=== PATIENT | female | born 1995 | race Caucasian/White ===

== ENCOUNTER → 2017-12-23 11:54 | Outpatient (CLI) | payer BC, SELFPAY ==
[2017-12-23 12:25] LABS: Absolute Lymphocyte Count 7.34 X10^3/ul (0.83-4.51); Absolute Neutrophil Count 2.6 X10^3/uL (2.0-7.7); Basophil# 0.24 X10^3/uL; Basophil% 2.1 % (0-1); Eosinophil# 0.26 X10^3/uL; Eosinophils% 2.3 % (0-5); Hematocrit 37.9 % (37-47); Hemoglobin 12.1 g/dl (12.0-15.0); Lymphocyte # 7.34 X10^3/ul (4.0); Lymphocyte % 64.7 % (19-41); Mean Corp Hgb Conc 31.9 g/gl (32-36); Mean Corpuscular Hgb 26.5 pg (27.0-32.0); Mean Corpuscular Volume 83.1 fL (81-99); Mean Platelet Vol. 10.6 fl (6.2-12.0); Monocyte% 7.9 % (0-10); Neutrophil # 2.59 X10^3/uL (2.7-7.7); Neutrophil % 22.8 % (47-70); Platelet Count 220 K/mm3 (150-450); RBC Distribution Width CV 13.2 % (11.6-14.6); RBC Distribution Width SD 40.1 fl (35.1-43.9); Red Blood Count 4.56 M/mm3 (4.2-5.4); White Blood Count 11.4 K/mm3 (4.4-11.0)
[2017-12-23 12:26] LABS: Differential Indicated SCAN CRITERIA MET; POSITIVE COUNT NO; POSITIVE DIFFERENTIAL YES; POSITIVE MORPHOLOGY YES
[2017-12-23 12:27] LABS: ALB/GLOB Ratio 0.7 RATIO (0.9-2.4); AST(SGOT) 37 U/L (15-37); Alanine Aminotransfer ALT/SGPT 70 U/L (13-56); Albumin, Serum 3.3 g/dL (3.2-5.0); Alkaline Phosphatase 101 U/L (45-117); Anion Gap 6 (5-15); BUN 11 mg/dL (7-18); BUN/Creat Ratio 12.6 RATIO (10-20); Calcium,Total 8.9 mg/dL (8.5-10.1); Chloride 107 mmol/L (98-107); Creatinine, Serum 0.87 mg/dL (0.55-1.02); EST Glomerular Filtration Rate 87 mL/min (>60); Est Glom Filt Rate - Afr Amer 105 mL/min (>60); Globulin 4.9 g/dL (2.2-4.2); Glucose 161 mg/dL (74-106); Potassium 3.5 mmol/L (3.5-5.1); Protein, Total 8.2 g/dL (6.4-8.2); Sodium Level 140 mmol/L (136-145)
[2017-12-23 13:25] LABS: Atypical Lymphocyte 1+ %
[2017-12-25 08:02] LABS: Pathologist Review Reviewed
== END ==
DX: K51.919 Ulcerative colitis, unspecified with unspecified complications (principal); K92.1 Melena
CPT/HCPCS: 80053; 85025

== ENCOUNTER → 2018-01-04 16:00 | Outpatient (CLI) | payer BC, SELFPAY ==
--- NOTE | 2018-01-04 | COLBX_PTH ---
PATIENT: AARON HYDE LOC: [facility] U#:[id number] AGE/SX: 30/F ROOM: RE01/04/[address]: Dr. Eric Thayer MD : 1995 BED: DIS: SPEC #: [id number] RECD: 01/04/18 15:25 STATUS: VILMA RAFAEL #: [id number] ABENA: 01/04/18 00:[address]: Eric Thayer DEPT: SURGICAL PATHOLOGY RECD BY: Marcel Posada ENTERED: 01/05/18 08:20 SP TYPE: COLON BX OT DR: No Primary Care [facility] Tissues: A - Right colon B - Transverse colon C - Rectum, NOS Procedures: Surgery Specimen Level IV HEADER OPERATION: Colonoscopy with biopsy PRE-OP DIAGNOSIS: History of ulcerative colitis / bleeding / abdominal pain TISSUE SUBMITTED: A. Right colon biopsy, rule out ulcerative colitis, B. Transverse left colon, rule out ulcerative colitis, C. Rectum biopsy, rule out ulcerative colitis MICROSCOPIC DIAGNOSIS A. Right colon, biopsy: Focal chronic active colitis. See microscopic description and comment. B. Transverse/left colon, biopsy: Chronic active colitis. See microscopic description and comment. C. Rectum, biopsy: Chronic active colitis. See microscopic description and comment. SJ:rg 01/06/18 COMMENT The findings are consistent with active inflammatory bowel disease (ulcerative colitis). Correlation with clinical, endoscopic findings and appropriate follow up are necessary. MICROSCOPIC DESCRIPTION Slides are reviewed. A. The specimen shows fragments of colonic mucosa with acute and chronic inflammatory cell infiltrate in the lamina propria, minimal cryptitis, crypt abscesses and glandular distortion. Granulomas are not seen. There is no evidence of dysplasia. B. The specimen shows fragments of colonic mucosa with acute and chronic inflammatory cell infiltrate in the lamina propria, cryptitis, crypt abscesses and minimal glandular distortion. Granulomas are not seen. There is no evidence of dysplasia. C. The specimen shows fragments of colonic mucosa and superficial submucosa with moderate chronic inflammation, glandular distortion and mild acute inflammation. Cryptitis, crypt abscesses and granulomas are not seen. There is no evidence of dysplasia. GROSS DESCRIPTION A - Received in fixative is one container labeled with the patient's name and designated right colon. The specimen consists of multiple irregular fragments of light bowles soft tissue that in aggregate measure 1.5 x 0.3 x 0.1 cm. The specimen is totally submitted in one cassette. B - Received in fixative is one container labeled with the patient's name and designated transverse/left colon. The specimen consists of multiple irregular fragments of light bowles soft tissue that in aggregate measure 1 x 0.6 x 0.1 cm. The specimen is totally submitted in one cassette. C - Received in fixative is one container labeled with the patient's name and designated rectum. The specimen consists of multiple irregular fragments of light bowles soft tissue that in aggregate measure 0.5 x 0.5 x 0.1 cm. The specimen is totally submitted in one cassette. / SJ:rg 01/05/18 TC:2 CPT: 81405 x3
== END ==
LOC: LABSPEC 16:01
PROVIDERS: Visit Provider Internal Medicine Gastroenterology
DX: R10.9 Unspecified abdominal pain (principal); R58 Hemorrhage, not elsewhere classified; Z87.19 Personal history of other diseases of the digestive system
CPT/HCPCS: 88305

== ENCOUNTER 2018-01-20 03:59 | Inpatient (IN) | payer BC, SELFPAY ==
[2018-01-20] VITALS (12 sets, daily range): BP systolic 137–159; BP diastolic 66–100; PULSE 76–129; RESP 14–26; TEMP 36.5–37.2; O2SAT 95–100; BMI 38.9; BMI 40.0
--- NOTE | 2018-01-20 04:07 | ED.DCSUM_ITS ---
- ER Visit Summary Date of Service: 01/20/18 Chief Complaint: Elevated blood sugar, vomiting History of Present Illness: The patient is a 22 F presents to the emergency department with elevated blood sugar. Patient has a history of ulcerative colitis. She has been on 30 mg of prednisone for the past 3 weeks. She had outpatient lab work done and had a blood sugar of around 400. This was done about 2 days ago. The patient was started on metformin. She states she does not feel any better. She has been nauseated with some vomiting. She has been lightheaded and has had increased urination. She denies any bloody diarrhea. She denies any fevers or chills. She does admit to increased urination, but has had no pain with urination. She does states I do not feel well. Physical Examination: Vital signs reviewed General: Well-nourished, well-developed Head: Normocephalic, atraumatic Eyes: Pupils equal and reactive, extraocular muscles intact Neck, supple, no lymphadenopathy Heart: Regular rate and rhythm Respiratory: No distress, clear bilaterally Abdomen: Soft, nontender, nondistended, no peritoneal signs Back: Nontender Extremities: Nontender, no edema, no cords Skin: Normal color no rash Neuro: Alert and oriented, no focal or lateralizing deficits Test Results: [] Emergency Department Course and Treatment: The patient presents with elevated blood sugar and nausea. She really has no reproducible abdominal pain. She was tachycardic however on arrival, but had no tachypnea. IV was established. Patient was given Zofran and a GI cocktail. She had marked improvement of her nausea. She was given IV fluids. Screening labs demonstrate hyperglycemia in the patient has an elevated anion gap and a bicarb of 8. She only has a small amount of ketones in the serum. I really do not suspect this to be diabetic ketoacidosis, the patient really has no documented history of diabetes, and is only had elevated blood sugar because of her prednisone use. I did discuss the patient with Dr. Bryson. He did clear agree with plan for subcutaneous insulin therapy and aggressive hydration. I do not feel this patient requires the ICU at this time. Her lactate is normal. Again, she is not tachypneic. She has had improvement with fluids. I do feel that she can require continued hydration , repeat metabolic panel, and determining of insulin needs while on her present therapy. Patient was discussed with the hospitalist will be admitted. Treatment Plan: [] Disposition: Admission Impression: 1. Dehydration 2. Hyperglycemia This note was generated with [employer] dictation software. It may contain incorrect words, spelling, and punctuation that were not noted in review of the chart prior to signing ED Disposition - Plan for ED Patient: Chief Complaint: Hyperglycemia Referrals: Noah Purcell MD [Primary Care Provider] -
[2018-01-20 04:11] LABS: Bedside Glucose 362 mg/dL (70-110)
[2018-01-20] MEDS: 0.9% Normal Saline 1,000 ML 1000 ML IV ×2 (04:20→04:21)
[2018-01-20] MEDS: Ondansetron 4 MG/2 ML Vial IV (04:21)
[2018-01-20 04:33] LABS: Basophil# 0.06 X10^3/uL; Basophil% 0.5 % (0-1); Eosinophil# 0.08 X10^3/uL; Eosinophils% 0.6 % (0-5); Hematocrit 44.9 % (37-47); Hemoglobin 15.1 g/dl (12.0-15.0); Lymphocyte % 33.9 % (19-41); Mean Corp Hgb Conc 33.6 g/gl (32-36); Mean Corpuscular Hgb 27.3 pg (27.0-32.0); Mean Platelet Vol. 11.3 fl (6.2-12.0); Monocyte# 1.14 X10^3/uL; Neutrophil % 55.1 % (47-70); Platelet Count 362 K/mm3 (150-450); RBC Distribution Width CV 13.8 % (11.6-14.6); RBC Distribution Width SD 39.9 fl (35.1-43.9); Red Blood Count 5.54 M/mm3 (4.2-5.4); White Blood Count 12.7 K/mm3 (4.4-11.0)
[2018-01-20 04:40] LABS: POSITIVE COUNT NO; POSITIVE DIFFERENTIAL NO; POSITIVE MORPHOLOGY NO
[2018-01-20 04:51] LABS: ALB/GLOB Ratio 0.8 RATIO (0.9-2.4); AST(SGOT) 11 U/L (15-37); Alanine Aminotransfer ALT/SGPT 52 U/L (13-56); Albumin, Serum 4.2 g/dL (3.2-5.0); Alkaline Phosphatase 80 U/L (45-117); Anion Gap 24 (5-15); BUN 18 mg/dL (7-18); Calcium,Total 8.9 mg/dL (8.5-10.1); Chloride 101 mmol/L (98-107); EST Glomerular Filtration Rate 60 mL/min (>60); Est Glom Filt Rate - Afr Amer 72 mL/min (>60); Estimated Creatinine Clearance 74.81 ml/min; Globulin 5.4 g/dL (2.2-4.2); Glucose 373 mg/dL (74-106); Protein, Total 9.6 g/dL (6.4-8.2); Sodium Level 133 mmol/L (136-145)
[2018-01-20] MEDS: Insulin Lispro 100 UNIT/ML INSULN.PEN 14 UNIT SC (05:29)
[2018-01-20] MEDS: Lactated Ringers 1,000 ML 999 ML IV ×2 (05:33→07:24)
[2018-01-20 05:46] LABS: Lactic Acid 1.2 mmol/L (0.4-2.0)
[2018-01-20 06:15] LABS: White Blood Cells 0 SEEN /hpf (0-5)
[2018-01-20 06:17] LABS: Color, Urine Yellow (Yellow); Glucose, Dipstick 1000 mg/dl (Normal); Leukocyte Esterase-Dipstick Negative /ul (Negative); Nitrite-Dipstick Negative (Negative); Occult Blood-Urine 150 /ul (Negative); Protein-Dipstick 100 mg/dl (Negative); Specific Gravity, Urine 1.025 (1.002-1.030); Urine Bilirubin Dipstick Negative (Negative); Urine Clarity Sl. Cloudy (Clear); Urine Urobilinogen Normal (Normal)
[2018-01-20 06:19] LABS: Internal QC Validated? YES +Cl - CLEAR BKGD; Pregnancy, Urine Negative Negative
[2018-01-20 06:35] LABS: Ketone-Dipstick 150 mg/dl (Negative)
[2018-01-20 06:36] LABS: Bacteria RARE /hpf (None Seen); Squamous Epithelial Cells - UA 0-5 SEEN /hpf (5-10)
[2018-01-20 06:37] LABS: Mucous, Urine 1+ /hpf (<or=2+); Red Blood Cells-Urine 0-5 SEEN /hpf (0-5)
[2018-01-20 07:06] LABS: Bedside Glucose 272 mg/dL (70-110)
--- NOTE | 2018-01-20 07:37 | HP.PCM_ITS ---
Problem List (1) DKA (diabetic ketoacidoses) Status: Acute (2) Ulcerative colitis Status: Acute History of Present Illness Date of Admission: 01/20/18 Chief Complaint: Nausea, abdominal pain and vomiting The patient is a 22 year old F with a significant history of ulcerative colitis who presents with abdominal pain, nausea and vomiting. This month (December 2017)patient was started on prednisone because of her ulcerative colitis. Patient reported that in the last 3 days her blood glucose has been extremely elevated in the upper 300s. Associated of his symptoms is increased urinary frequency to an extent that she even becomes incontinent of urine. Further, she reports polydipsia, anorexia; and a feeling of dry tongue. About 3 days ago she was diagnosed with diabetes by her PCP and was started on Glucophage. Past Medical History Medical History: Medical History (Last Updated 01/20/18 @ 07:40 by Wally Kwon MD) Ulcerative colitis K51.90 Allergies amoxicillin Allergy (Verified 01/20/18 04:00) Rash Sulfa (Sulfonamide Antibiotics) Allergy (Verified 01/20/18 04:00) Nausea/Vom/Diarrhea Home Medications: Ambulatory Orders Medication Instructions Recorded Ferrous Sulfate [Iron] 325 mg PO DAILY 01/20/18 Mesalamine [Lialda] 1.2 gm PO DAILY 01/20/18 Metformin HCl [Glucophage] 500 mg PO BIDCM 01/20/18 Prednisone 20 mg PO DAILY 01/20/18 Lives: With Family Smoking Status: Former smoker Tobacco Use: Non-smoker Alcohol: None Drugs: None - *Family History Maternal History Items: - - Liver disease Review of Systems Constitutional: Reports: Malaise Eyes: Reports: Blurred vision HEENT: Denies: Head Aches, Sinus Congestion, Sinus Drainage Cardiovascular: Denies: Chest Pain, Palpitations Respiratory: Denies: Cough, Shortness of breath at rest, Sputum production Gastrointestinal: Reports: Abdominal Pain, Nausea, Vomiting Genitourinary: Reports: Frequency, Incontinence, Urgency Musculoskeletal: Denies: Joint Pain, Joint Tenderness Skin: Reports: Dryness Neurological: Denies: Numbness, Tingling, Focal weakness Psychiatric: Denies: Anxiety, Depression, Homicidal Ideations, Suicidal Ideations Hematologic/ Lymphatic: Denies: Easy Bruising, Easy Bleeding VTE Information - Inpt Only VTE Present on Admission: No VTE Mechan Device Prophylaxis: None VTE Pharm Prophylaxis ordered?: No Reason prophylaxis not ordered:: Medical Contraindication Patient Problems: Active and Suspected Problems (Last Updated 01/20/18 @ 07:40 by Wally Kwon MD) DKA (diabetic ketoacidoses) (Acute) Ulcerative colitis (Acute) - Physical Exam General: Alert, Oriented x3, Cooperative HEENT: Atraumatic, PERRLA, EOMI, Normocephalic Neck: Supple, No JVD, Negative Carotid Bruits Lungs: Clear to auscultation, Normal air movement Cardiovascular: Tachycardic Abdomen: Bowel Sounds Present, Soft, Tender Extremities: No edema, Capillary Refill Less than 3 Seconds Skin: No rashes, No breakdown Musculoskeletal: No Tenderness to Palpation of Joints or Extremities Lymphatic: No Cervical, Supraclavicular, or Inguinal Adenopathy Neurological: Cranial nerves II-XII grossly intact Psych/Mental Status: Normal Affect Vital Signs Temp Pulse Resp BP Pulse Ox 98.3 F 100 26 H 137/85 H 97 01/20/18 07:23 01/20/18 07:23 01/20/18 07:23 01/20/18 07:23 01/20/18 07:23 Oxygen Delivery Method Room Air Weight: 116 kg Body Mass Index (BMI) 38.9 Finger Stick Blood Glucose 272 Laboratory Tests Past 24 Hrs 01/20/18 01/20/18 01/20/18 04:25 04:25 04:25 WBC 12.7 H RBC 5.54 H Hgb 15.1 H Hct 44.9 MCV 81.0 MCH 27.3 MCHC 33.6 RDW 13.8 RDW Differential 39.9 Plt Count 362 MPV 11.3 Immature Gran % (Auto) 0.900 Neut % (Auto) 55.1 Lymph % (Auto) 33.9 [place] % (Auto) 9.0 Eos % (Auto) 0.6 Baso % (Auto) 0.5 Absolute Neuts (auto) 7.0 Absolute Lymphs (auto) 4.30 Total Counted Not Reportable Sodium 133 L Potassium 4.0 Chloride 101 Carbon Dioxide 8.0 L* Anion Gap 24 H BUN 18 Creatinine 1.20 H Estim Creat Clear Calc 74.81 Est GFR (MDRD) Af Amer 72 Est GFR (MDRD) Non-Af 60 BUN/Creatinine Ratio 15.0 Glucose 373 H Lactic Acid Calcium 8.9 Total Bilirubin 0.60 AST 11 L ALT 52 Alkaline Phosphatase 80 Total Protein 9.6 H Albumin 4.2 Globulin 5.4 H Albumin/Globulin Ratio 0.8 L Urine Color Urine Clarity Urine pH Ur Specific [place] Urine Protein Urine Glucose (UA) Urine Ketones Urine Occult Blood Urine Nitrite Urine Bilirubin Urine Urobilinogen Ur Leukocyte Esterase Urine RBC Urine WBC Ur Squamous Epith Cells Urine Bacteria Urine Mucus Urine Test Acetone Level SMALL H 01/20/18 01/20/18 01/20/18 05:05 06:05 06:05 WBC RBC Hgb Hct MCV MCH MCHC RDW RDW Differential Plt Count MPV Immature Gran % (Auto) Neut % (Auto) Lymph % (Auto) [place] % (Auto) Eos % (Auto) Baso % (Auto) Absolute Neuts (auto) Absolute Lymphs (auto) Total Counted Sodium Potassium Chloride Carbon Dioxide Anion Gap BUN Creatinine Estim Creat Clear Calc Est GFR (MDRD) Af Amer Est GFR (MDRD) Non-Af BUN/Creatinine Ratio Glucose Lactic Acid 1.2 Calcium Total Bilirubin AST ALT Alkaline Phosphatase Total Protein Albumin Globulin Albumin/Globulin Ratio Urine Color Yellow Urine Clarity Sl. Cloudy Urine pH 5.0 Ur Specific [place] 1.025 Urine Protein 100 H Urine Glucose (UA) 1000 H Urine Ketones 150 H Urine Occult Blood 150 H Urine Nitrite Negative Urine Bilirubin Negative Urine Urobilinogen Normal Ur Leukocyte Esterase Negative Urine RBC 0-5 SEEN Urine WBC 0 SEEN Ur Squamous Epith Cells 0-5 SEEN Urine Bacteria RARE Urine Mucus 1+ Urine Test Negative Acetone Level POC Glucose 01/20/18 01/20/18 07:00 04:05 POC Glucose 272 H 362 H Assessment/Plan All Active Problems (Last Updated 01/20/18 @ 07:40 by Wally Kwon MD) DKA (diabetic ketoacidoses) (Acute) Ulcerative colitis (Acute) The patient is a 22 year old F with a significant history of ulcerative colitis who presents with abdominal pain, nausea, vomiting, elevated blood glucose and found to have laboratory evidence of elevated anion gap hyperglycemia and ketosis concerning for diabetes ketoacidosis and dehydration. Diabetes ketoacidosis Patient received lispro 14 units at emergency department. Patient is scheduled to receive 2 L bolus of lactated Ringer's; and 2 L bolus of normal saline at the ED. Patient to be admitted to progressive care unit and continue hydration with half -normal saline with 40 mEq of potassium at 100 mL's per hour BMP stat and every 4 hours. Accu-Cheks every 2 hours and correction scale with lispro. We will keep patient n.p.o. for now. Morphine as needed for pain Zofran as needed for nausea and vomiting. A1c ordered. Dehydration Hydration as above. Ulcerative colitis Continue prednisone Patient to follow up with her GI doctor upon discharged. DVT prophylaxis Ambulation This note was prepared with speech recognition software and may be prone to errors in storage facility housekeeper. Code Visit Inpatient E&M: 63099 Init Hosp L2
[2018-01-20 08:10] LABS: Anion Gap 19 (5-15); BUN 14 mg/dL (7-18); BUN/Creat Ratio 17.1 RATIO (10-20); Calcium,Total 8.2 mg/dL (8.5-10.1); Chloride 107 mmol/L (98-107); Creatinine, Serum 0.82 mg/dL (0.55-1.02); EST Glomerular Filtration Rate 93 mL/min (>60); Est Glom Filt Rate - Afr Amer 113 mL/min (>60); Estimated Creatinine Clearance 109.48 ml/min; Glucose 238 mg/dL (74-106); Potassium 3.7 mmol/L (3.5-5.1); Sodium Level 139 mmol/L (136-145)
[2018-01-20 08:30] LABS: Allen Test POS; Base Excess -19 mmol/L (-2 to +2); Bicarbonate 7.5 mmol/L (22-26); Blood Gas Specimen Type ART; O2 Delivery Device Room Air; PO2 169 mmHG (75-100); SITE R Radial; SO2 99 % (95-99); Time Given 819; Total Carbon Dioxide 8 mmol/L; pCO2 15.3 mmHg (35-45)
[2018-01-20 09:01] LABS: Bedside Glucose 206 mg/dL (70-110)
[2018-01-20] MEDS: Potassium Chloride 40 MEQ in 0.45% Normal Saline 1,000 ML 100 MEQ IV (09:17)
[2018-01-20] MEDS: predniSONE 20 MG Tablet PO (09:18)
[2018-01-20] MEDS: Ferrous Sulfate 325 MG Tablet PO (09:18)
[2018-01-20] MEDS: Mesalamine 1.2 GM Tablet PO (09:18)
[2018-01-20] MEDS: Insulin Lispro 100 UNIT/ML INSULN.PEN SQ ×7 (10:03→22:08)
[2018-01-20 10:06] LABS: Bedside Glucose 225 mg/dL (70-110)
[2018-01-20 10:39] LABS: Anion Gap 16 (5-15); BUN 13 mg/dL (7-18); BUN/Creat Ratio 15.1 RATIO (10-20); Calcium,Total 8.3 mg/dL (8.5-10.1); Chloride 109 mmol/L (98-107); Creatinine, Serum 0.86 mg/dL (0.55-1.02); EST Glomerular Filtration Rate 87 mL/min (>60); Est Glom Filt Rate - Afr Amer 106 mL/min (>60); Estimated Creatinine Clearance 104.38 ml/min; Glucose 208 mg/dL (74-106); Sodium Level 139 mmol/L (136-145)
--- NOTE | 2018-01-20 10:56 | CASEMGMT ---
Face to Face with patient for initial transition planning/care coordination assessment. MORENA PATRICIA introduced self and role at [facility], pt voices understanding and consents to assessment at this time. Pt is lying in bed in no distress at this time. Pt is A/Ox4 at this time and answers all questions appropriately at this time. Care providers, pharmacy, and demographics verified. See attached link. Pt voices no further concerns/needs at this time. Advised pt to ask for CM if any further questions/concerns/needs arise, voices understanding. PLAN: [place] MORENA PATRICIA
[2018-01-20 12:20] LABS: Bedside Glucose 195 mg/dL (70-110)
[2018-01-20 14:06] LABS: Bedside Glucose 205 mg/dL (70-110)
[2018-01-20 14:27] LABS: Anion Gap 16 (5-15); BUN 11 mg/dL (7-18); BUN/Creat Ratio 13.5 RATIO (10-20); Calcium,Total 8.3 mg/dL (8.5-10.1); Chloride 109 mmol/L (98-107); Creatinine, Serum 0.82 mg/dL (0.55-1.02); EST Glomerular Filtration Rate 93 mL/min (>60); Est Glom Filt Rate - Afr Amer 113 mL/min (>60); Estimated Creatinine Clearance 109.48 ml/min; Glucose 200 mg/dL (74-106); Potassium 3.7 mmol/L (3.5-5.1); Sodium Level 137 mmol/L (136-145)
--- NOTE | 2018-01-20 15:35 | PCM.PN.BLA ---
Progress Note 22 y/o female, obese, recently on steroids for ulcerative colitis, comes in with complaints of hyperglycemia and dehydration. Admitted early this morning. She is seen and examined. No new complains. Vitals are stable. Labs shows HCO3 12, Anion gap is 16. Being managed in PCU, found to be in DKA, repeat BMP still shows elevated anion gap, on ISS every 2 hours, will trend BMP. Will follow in am.
[2018-01-20 16:16] LABS: Bedside Glucose 211 mg/dL (70-110)
[2018-01-20 18:10] LABS: Bedside Glucose 212 mg/dL (70-110)
[2018-01-20 19:07] LABS: Anion Gap 18 (5-15); BUN 10 mg/dL (7-18); BUN/Creat Ratio 13.2 RATIO (10-20); Calcium,Total 8.3 mg/dL (8.5-10.1); Chloride 107 mmol/L (98-107); Creatinine, Serum 0.76 mg/dL (0.55-1.02); EST Glomerular Filtration Rate 101 mL/min (>60); Est Glom Filt Rate - Afr Amer 123 mL/min (>60); Estimated Creatinine Clearance 118.12 ml/min; Glucose 240 mg/dL (74-106); Potassium 3.5 mmol/L (3.5-5.1); Sodium Level 135 mmol/L (136-145)
[2018-01-20 19:23] LABS: Anion Gap 16 (5-15); BUN 9 mg/dL (7-18); BUN/Creat Ratio 11.7 RATIO (10-20); Calcium,Total 8.4 mg/dL (8.5-10.1); Chloride 109 mmol/L (98-107); Creatinine, Serum 0.77 mg/dL (0.55-1.02); EST Glomerular Filtration Rate 100 mL/min (>60); Est Glom Filt Rate - Afr Amer 121 mL/min (>60); Estimated Creatinine Clearance 116.59 ml/min; Glucose 221 mg/dL (74-106); Potassium 3.5 mmol/L (3.5-5.1); Sodium Level 136 mmol/L (136-145)
[2018-01-20 20:21] LABS: Bedside Glucose 223 mg/dL (70-110)
[2018-01-20 21:21] LABS: Hemoglobin A1c 10.2 % (4.2-6.3)
[2018-01-20 22:19] LABS: Anion Gap 15 (5-15); BUN 7 mg/dL (7-18); BUN/Creat Ratio 9.7 RATIO (10-20); Calcium,Total 8.4 mg/dL (8.5-10.1); Chloride 109 mmol/L (98-107); Creatinine, Serum 0.72 mg/dL (0.55-1.02); EST Glomerular Filtration Rate 108 mL/min (>60); Est Glom Filt Rate - Afr Amer 131 mL/min (>60); Estimated Creatinine Clearance 124.68 ml/min; Glucose 207 mg/dL (74-106); Potassium 3.3 mmol/L (3.5-5.1); Sodium Level 137 mmol/L (136-145)
[2018-01-20 22:20] LABS: Bedside Glucose 194 mg/dL (70-110)
[2018-01-21] MEDS: Insulin Lispro 100 UNIT/ML INSULN.PEN SQ ×3 (00:06→04:01)
[2018-01-21 00:15] LABS: Bedside Glucose 213 mg/dL (70-110)
[2018-01-21 02:06] LABS: Bedside Glucose 212 mg/dL (70-110)
[2018-01-21 02:34] VITALS: PULSE 140
[2018-01-21 03:03] VITALS: PULSE 86
[2018-01-21 03:45] LABS: Anion Gap 14 (5-15); BUN 6 mg/dL (7-18); BUN/Creat Ratio 9.6 RATIO (10-20); Calcium,Total 8.1 mg/dL (8.5-10.1); Chloride 111 mmol/L (98-107); Creatinine, Serum 0.63 mg/dL (0.55-1.02); EST Glomerular Filtration Rate 127 mL/min (>60); Est Glom Filt Rate - Afr Amer 153 mL/min (>60); Estimated Creatinine Clearance 142.49 ml/min; Glucose 199 mg/dL (74-106); Potassium 3.4 mmol/L (3.5-5.1); Sodium Level 138 mmol/L (136-145)
[2018-01-21 04:00] VITALS: BP 136/70; PULSE 88; RESP 16; TEMP 36.8; O2SAT 98
[2018-01-21 04:15] LABS: Bedside Glucose 190 mg/dL (70-110)
[2018-01-21 06:56] LABS: Bedside Glucose 188 mg/dL (70-110)
[2018-01-21 07:13] VITALS: PULSE 97
[2018-01-21] MEDS: Ferrous Sulfate 325 MG Tablet PO (08:13)
[2018-01-21] MEDS: Insulin Lispro 100 UNIT/ML INSULN.PEN SC ×2 (08:13→11:50)
[2018-01-21] MEDS: Insulin Lispro 100 UNIT/ML INSULN.PEN 8 UNIT SC ×2 (08:13→11:50)
[2018-01-21] MEDS: predniSONE 20 MG Tablet PO (08:13)
[2018-01-21] MEDS: Mesalamine 1.2 GM Tablet PO (08:13)
[2018-01-21 09:45] VITALS: BP 135/64; PULSE 113; RESP 16; TEMP 36.8; O2SAT 99
--- NOTE | 2018-01-21 10:59 | DCINST_ITS ---
- Discharge Diagnoses Current Active Problems: Current Active and Chronic Problems (Last Updated 01/20/18 @ 07:40 by Wally Kwon MD) DKA (diabetic ketoacidoses) (Acute) Ulcerative colitis (Acute) You will use the following diet at home:: Calorie/Carbohydrate Controlled ( specify 1200, 1400, etc) - 1800 calories per day Your food should be the consistency of: Regular Your liquids should be the consistency of: Regular/Thin Discharge Activity: Return to Normal Activity Allergies/Adverse Reactions: Allergies amoxicillin Allergy (Verified 01/20/18 04:00) Rash Sulfa (Sulfonamide Antibiotics) Allergy (Verified 01/20/18 04:00) Nausea/Vom/Diarrhea Medications to take at Discharge Ferrous Sulfate [Iron] 325 mg PO DAILY 01/20/18 Medroxyprogesterone Acetate [Depo-Subq Provera 104] 1 dis.syr SQ QMONTH Mesalamine [Lialda] 1.2 gm PO DAILY 01/20/18 Metformin HCl [Glucophage] 500 mg PO BIDCM 01/20/18 Prednisone 30 mg PO DAILY 01/20/18 Insulin Glargine [Lantus SoloStar Pen] 20 units SC DAILY #1 pen 01/21/18 Insulin Lispro [Humalog KwikPen] 2 unit SC TIDAC #1 insuln.pen 01/21/18 Insulin Lispro [Humalog KwikPen] See Protocol SC ACHS #1 insuln.pen 01/21/18 The following prescriptions were given: Insulin Glargine [Lantus SoloStar Pen] 20 units SC DAILY #1 pen Insulin Lispro [Humalog KwikPen] See Protocol SC ACHS #1 insuln.pen Insulin Lispro [Humalog KwikPen] 2 unit SC TIDAC #1 insuln.pen Primary Care Physician: Noah Purcell MD [Primary Care Provider] - Please follow up with your Primary Care Physician in: 1-2 weeks Test Results: Test results from this visit will be discussed in further detail at your follow- up appointment, if applicable. Please Follow Up With: Ashlie Borrego DIRECTOR [employer]ENT [employer]ET[employer] When: 1 week Please Follow Up With: Eric Thayer MD When: As directed Proposed Discharge Date: 01/21/18
[2018-01-21 12:00] LABS: Bedside Glucose 344 mg/dL (70-110)
--- NOTE | 2018-01-21 13:41 | PCM.DC.SUM ---
<Allen Roldan - Last Filed: 01/21/18 13:41> Discharge Date and Diagnosis Date of Admission: 01/20/18 Date of Discharge: 01/21/18 - Primary Discharge Diagnosis Active and Suspected Problems (Last Updated 01/20/18 @ 07:40 by Wally Kwon MD) DKA (diabetic ketoacidoses) (Acute) Dehydration 2/2 above Ulcerative colitis Hypokalemia Morbid obesity Hospital Course and Treatment Operations: None Procedures: None Summary of Care Provided: Physical exam on day of discharge: General: Resting comfortably NAD Psych: A/Ox3 normal affect HEENT: PEARRLA AT NC Neck: Supple NT CV: RRR no m/t/r/g/h Resp: CTA Abd: [id number] Soft NT no guarding or rigidity, morbid obesity. Ext: DP2+= no edema Skin: W/D normal turgor Lymph/Heme: No active bleeding or adenopathy Neuro: CN2-12 intact Hospital course: The patient is a 22 year old F with a hx of recent dx of DMt2, ulcerative colitis currently on a long prednisone taper, morbid obesity, who presents to the ER with nausea, vomiting, and abdominal pain. She was recently started on metformin for DMt2 by her PCP, and is currently on a long prednisone taper for ulcerative colitis per Dr. Thayer (GI). She had increased urinary frequency, thirst, and urinary incontinence. She was found to have elevated glucose, increased acetone level, elevated white count. Urinalysis was neg for infection. Glucose and ketone levels were elevated. She was started on long and short acting insulin, IV fluids, and admitted to the PCU for DKA. She was kept overnight and was able to achieve better glucose control. Potassium was low and was repleted. A1C was 10.2. She had no further symptoms the following morning. She was prescribed 20 units lantus daily, 2 units humalog tid with meals, and a sliding scale. She was writted for a glucometer, lancets, test strips, and insulin syringes. She was advised to see WILLI Borrego in endocrinology within a week. She will need to continue the prednisone taper as prescribed and follow up with Dr. Thayer. She will restart metformin. I also advised her of the risk of worsening diabetes and weight gain with continued Depo control and to seek guidance on alternatives. She was discharged home in stable condition. This patient was seen by Allen Roldan PA-C under the supervision of Doctor Lela. [] Discharge Diet: 1800 Calorie Control Diet Discharge Activity: Return to Normal Activity Home Medications: Medications to take at Discharge Ferrous Sulfate [Iron] 325 mg PO DAILY 01/20/18 Medroxyprogesterone Acetate [Depo-Subq Provera 104] 1 dis.syr SQ QMONTH 01/20/18 Mesalamine [Lialda] 1.2 gm PO DAILY 01/20/18 Metformin HCl [Glucophage] 500 mg PO BIDCM 01/20/18 Prednisone 30 mg PO DAILY 01/20/18 Insulin Glargine [Lantus SoloStar Pen] 20 units SC DAILY #1 pen 01/21/18 Insulin Lispro [Humalog KwikPen] 2 unit SC TIDAC #1 insuln.pen 01/21/18 Insulin Lispro [Humalog KwikPen] See Protocol SC ACHS #1 insuln.pen 01/21/18 Following Prescrptions Were Given to Patient: Insulin Glargine [Lantus SoloStar Pen] 20 units SC DAILY #1 pen Insulin Lispro [Humalog KwikPen] See Protocol SC ACHS #1 insuln.pen Insulin Lispro [Humalog KwikPen] 2 unit SC TIDAC #1 insuln.pen Primary Care Physician: Noah Purcell MD [Primary Care Provider] - Please follow up with your Primary Care Physician in: 1-2 weeks Please Follow Up With: Ashlie Borrego NP-C When: 1 week Please Follow Up With: Eric Thayer MD When: As directed Disposition: Home Minutes spent on discharge:: 40 Patient Condition:: Stable Medical Necessity - Tobacco Use Smoking Status: Former smoker Tobacco Use: Non-smoker Meaningful Use Info Meaningful Use Diagnoses (Choose all that apply): None applicable <Yamila Vogel - Last Filed: 01/21/18 14:59> Hospital Course and Treatment Summary of Care Provided: The patient is a 22 year old F [] Code Visit Inpatient E&M: 28654 Disch Hosp
== END 2018-01-21 14:20 | disposition home or self-care (01) | DRG 638 ==
LOC: ED 05:05 → PCU 07:37
PROVIDERS: Internal Medicine; Admitting Provider Hospitalist; Emergency Provider Emergency Medicine; Family Provider Family Medicine; PCP Family Medicine; Visit Provider Hospitalist
DX: E11.10 Type 2 diabetes mellitus with ketoacidosis without coma (principal); K51.90 Ulcerative colitis, unspecified, without complications; E86.0 Dehydration; E87.6 Hypokalemia; E66.01 Morbid (severe) obesity due to excess calories; Z68.38 Body mass index [BMI] 38.0-38.9, adult; Z79.4 Long term (current) use of insulin; Z79.84 Long term (current) use of oral hypoglycemic drugs; Z79.899 Other long term (current) drug therapy; Z87.891 Personal history of nicotine dependence
CPT/HCPCS: 36415; 36600; 80048; 80053; 81001; 81025; 82009; 82803; 82962; 83036; 83605; 85025; 97802; 99283; J7030; J7050; J7120; A4216

== ENCOUNTER → 2018-01-25 10:26 | Outpatient (CLI) | payer BC, SELFPAY ==
[2018-01-25 11:55] LABS: Anion Gap 7 (5-15); BUN 8 mg/dL (7-18); BUN/Creat Ratio 9.2 RATIO (10-20); Calcium,Total 9.5 mg/dL (8.5-10.1); Chloride 100 mmol/L (98-107); Creatinine, Serum 0.87 mg/dL (0.55-1.02); EST Glomerular Filtration Rate 87 mL/min (>60); Est Glom Filt Rate - Afr Amer 105 mL/min (>60); Glucose 313 mg/dL (74-106); Potassium 2.6 mmol/L (3.5-5.1); Sodium Level 136 mmol/L (136-145)
[2018-01-31 16:06] LABS: QNTFERON TB Ag Minus Nil Value < 0 IU/mL (.); QNTFERON TB Ag Value 0.03 IU/mL (.); QNTFERON TB Mitogen Value > 10.00 IU/mL (.); QNTFERON TB Nil Value 0.04 IU/mL (.)
[2018-02-01 11:37] LABS: HEPATITIS B SURFACE AG Negative (Negative); QNTIFERON TB Gold Negative (Negative)
== END ==
PROVIDERS: Physician Assistant; Family Provider Family Medicine; PCP Family Medicine; Visit Provider Internal Medicine Gastroenterology
DX: K51.90 Ulcerative colitis, unspecified, without complications (principal); E11.10 Type 2 diabetes mellitus with ketoacidosis without coma
CPT/HCPCS: 36415; 80048; 86480; 87340

== ENCOUNTER 2018-01-25 13:26 | Emergency (ER) | payer BC, SELFPAY ==
[2018-01-25 13:27] VITALS: BP 164/79; PULSE 113; RESP 18; TEMP 37; O2SAT 96; BMI 40.4
--- NOTE | 2018-01-25 13:57 | ED.DCSUM_ITS ---
- ER Visit Summary Date of Service: 01/25/18 Chief Complaint: Low potassium History of Present Illness: The patient is a 22 F who reports that she had labs drawn today after being admitted last week because her sugar was elevated. She states that she was called and told to come to the emergency department because her potassium is low. When asked if she has any complaints she reports I feel fine. On review of systems patient reports that she has abdominal pain that began today and is 2 out of 10 severity. She denies any other complaints. Physical Examination: Vitals: Stable. Afebrile. General: Well-nourished and well-developed. Head: Normocephalic atraumatic. Neck: Supple, no lymphadenopathy. No JVD. Nontender. Cardiovascular: Regular rate and rhythm. No murmurs. Respiratory: No respiratory distress. Clear to auscultation bilaterally. Abdominal: Soft, nontender, nondistended, normal bowel sounds. No guarding, rebound, or peritoneal signs. Back: Nontender. Extremities: Nontender, no edema. Skin: Normal color, no rash. Neurologic: Alert and oriented ?3. Cranial nerves II through XII are intact. Normal strength and sensation. Psych: Normal affect. Test Results: BMP that was obtained prior to arrival shows potassium 2.6 and glucose of 313. Emergency Department Course and Treatment: Patient was given 40 mEq of K-Dur p.o. Treatment Plan: Patient will be discharged with 40 mEq of K-Dur p.o. twice daily. Instructed to follow-up with her primary care physician in 3-5 days for another exam. She is asymptomatic and I do not feel that she requires hospitalization or further evaluation for this. Return to the emergency department for any worsening symptoms. Disposition: To home in improved and stable condition. Impression: 1. Hypokalemia. 2. Hyperglycemia with history of non-insulin dependent diabetes mellitus. This note was generated with [employer] dictation software. It may contain incorrect words, spelling, and punctuation that were not noted in review of the chart prior to signing ED Disposition - Plan for ED Patient: Disposition: Home or Assisted Living Chief Complaint: Abn Labs Instructions: ED Potassium Deficiency Prescriptions: Potassium Chloride [K-Dur] 40 meq PO BID #20 tablet Referrals: Noah Purcell MD [Primary Care Provider] - 3-5 Days
== END 2018-01-25 14:26 | disposition home or self-care (01) ==
LOC: ED 14:12
PROVIDERS: Emergency Provider Emergency Medicine; Family Provider Family Medicine; PCP Family Medicine
DX: E87.6 Hypokalemia (principal); E10.65 Type 1 diabetes mellitus with hyperglycemia; K51.90 Ulcerative colitis, unspecified, without complications; Z79.4 Long term (current) use of insulin; Z79.84 Long term (current) use of oral hypoglycemic drugs; Z79.899 Other long term (current) drug therapy
CPT/HCPCS: 99283

== ENCOUNTER → 2018-05-14 15:11 | Outpatient (CLI) | payer BC, SELFPAY ==
[2018-05-14 18:19] LABS: Hematocrit 39.8 % (37-47); Hemoglobin 12.2 g/dl (12.0-15.0); Mean Corp Hgb Conc 30.7 g/gl (32-36); Mean Corpuscular Hgb 26.9 pg (27.0-32.0); Mean Corpuscular Volume 87.9 fL (81-99); Mean Platelet Vol. 10.6 fl (6.2-12.0); Platelet Count 328 K/mm3 (150-450); RBC Distribution Width CV 13.2 % (11.6-14.6); Red Blood Count 4.53 M/mm3 (4.2-5.4); White Blood Count 12.3 K/mm3 (4.4-11.0)
[2018-05-14 18:33] LABS: Scan Indicated on CBC? Y/N NO
[2018-05-14 20:33] LABS: Erythrocyte Sedimentation Rate 30 mm/hr (0-20)
== END ==
PROVIDERS: Family Provider Family Medicine; PCP Family Medicine; Referring Provider Internal Medicine Gastroenterology; Visit Provider Internal Medicine Gastroenterology
DX: K62.5 Hemorrhage of anus and rectum (principal); K52.9 Noninfective gastroenteritis and colitis, unspecified
CPT/HCPCS: 36415; 85027; 85652; 86140

== ENCOUNTER → 2018-08-16 08:14 | Outpatient (CLI) | payer BC, SELFPAY ==
[2018-08-09 15:05] VITALS: BMI 45.8
[2018-08-16 08:58] LABS: Microalbumin,Random Urine 24.8 mg/L (NO RANGE EST.); Microalbumin:Creatinine Ratio 33.6 mg/g CRE (<30 mg/g CRE)
[2018-08-16 09:08] LABS: ALB/GLOB Ratio 0.8 RATIO (0.9-2.4); AST(SGOT) 25 U/L (15-37); Alanine Aminotransfer ALT/SGPT 41 U/L (13-56); Albumin, Serum 3.5 g/dL (3.2-5.0); Alkaline Phosphatase 69 U/L (45-117); Anion Gap 6 (5-15); BUN 11 mg/dL (7-18); BUN/Creat Ratio 17.2 RATIO (10-20); Calcium,Total 8.5 mg/dL (8.5-10.1); Chloride 110 mmol/L (98-107); Cholesterol 140 mg/dL (200); Creatinine, Serum 0.64 mg/dL (0.55-1.02); EST Glomerular Filtration Rate 123 mL/min (>60); Est Glom Filt Rate - Afr Amer 149 mL/min (>60); Globulin 4.4 g/dL (2.2-4.2); Glucose 115 mg/dL (74-106); Hemoglobin A1c 6.6 % (4.2-6.3); High Density Lipoprotein 36 mg/dL; Protein, Total 7.9 g/dL (6.4-8.2); Sodium Level 139 mmol/L (136-145); Triglycerides 99 mg/dL; Very Low Density Lipoprotein 20 mg/dL (5-40)
== END ==
PROVIDERS: Family Provider Family Medicine; PCP Family Medicine; Referring Provider Nurse Practitioner; Visit Provider Nurse Practitioner
DX: E11.65 Type 2 diabetes mellitus with hyperglycemia (principal)
CPT/HCPCS: 36415; 80053; 80061; 82043; 82570; 83036

== ENCOUNTER → 2018-10-01 | Outpatient (CLI) | payer BC, SELFPAY ==
[2018-08-09 15:05] VITALS: BMI 45.8
[2018-10-01 10:13] LABS: Erythrocyte Sedimentation Rate 15 mm/hr (0-20)
[2018-10-01 10:15] LABS: Hematocrit 39.2 % (37-47); Mean Corp Hgb Conc 33.2 g/gl (32-36); Mean Corpuscular Hgb 27.2 pg (27.0-32.0); Mean Platelet Vol. 10.6 fl (6.2-12.0); Platelet Count 307 K/mm3 (150-450); RBC Distribution Width CV 12.6 % (11.6-14.6); RBC Distribution Width SD 37.9 fl (35.1-43.9); Red Blood Count 4.78 M/mm3 (4.2-5.4); Scan Indicated on CBC? Y/N NO; White Blood Count 10.2 K/mm3 (4.4-11.0)
[2018-10-01 10:33] LABS: ALB/GLOB Ratio 0.8 RATIO (0.9-2.4); AST(SGOT) 30 U/L (15-37); Alanine Aminotransfer ALT/SGPT 42 U/L (13-56); Albumin, Serum 3.6 g/dL (3.2-5.0); Alkaline Phosphatase 79 U/L (45-117); Anion Gap 7 (5-15); BUN 11 mg/dL (7-18); BUN/Creat Ratio 14.2 RATIO (10-20); Chloride 108 mmol/L (98-107); Creatinine, Serum 0.78 mg/dL (0.55-1.02); EST Glomerular Filtration Rate 98 mL/min (>60); Est Glom Filt Rate - Afr Amer 119 mL/min (>60); Globulin 4.7 g/dL (2.2-4.2); Glucose 122 mg/dL (74-106); Potassium 3.7 mmol/L (3.5-5.1); Protein, Total 8.3 g/dL (6.4-8.2); Sodium Level 141 mmol/L (136-145)
== END | disposition home or self-care (01) ==
LOC: MTLAB 09:11
PROVIDERS: Family Provider Family Medicine; PCP Family Medicine; Referring Provider Internal Medicine Gastroenterology; Visit Provider Internal Medicine Gastroenterology
DX: K51.90 Ulcerative colitis, unspecified, without complications (principal)
CPT/HCPCS: 36415; 80053; 85027; 85652; 86140

== ENCOUNTER → 2019-02-16 13:23 | Outpatient (CLI) | payer BC, SELFPAY ==
[2018-08-09 15:05] VITALS: BMI 45.8
[2019-02-16 14:11] LABS: Hematocrit 41.5 % (37-47); Hemoglobin 13.1 g/dL (12.0-15.0); Mean Corp Hgb Conc 31.6 g/dL (32-36); Mean Corpuscular Hgb 25.6 pg (27.0-32.0); Mean Corpuscular Volume 81.2 fL (81-99); Mean Platelet Vol. 11.3 fl (6.2-12.0); Platelet Count 303 K/mm3 (150-450); RBC Distribution Width CV 12.7 % (11.6-14.6); RBC Distribution Width SD 37.2 fl (35.1-43.9); Red Blood Count 5.11 M/mm3 (4.2-5.4); White Blood Count 11.4 K/mm3 (4.4-11.0)
== END ==
LOC: MTLAB 13:24
PROVIDERS: Family Provider Family Medicine; PCP Family Medicine; Referring Provider Internal Medicine Gastroenterology; Visit Provider Internal Medicine Gastroenterology
DX: K51.90 Ulcerative colitis, unspecified, without complications (principal)
CPT/HCPCS: 36415; 85027; 86140

== ENCOUNTER → 2019-07-05 15:01 | Outpatient (CLI) | payer BC, SELFPAY ==
[2018-08-09 15:05] VITALS: BMI 45.8
[2019-07-05 17:40] LABS: Hematocrit 43.2 % (37-47); Hemoglobin 13.7 g/dL (12.0-15.0); Mean Corp Hgb Conc 31.7 g/dL (32-36); Mean Corpuscular Hgb 24.9 pg (27.0-32.0); Mean Corpuscular Volume 78.5 fL (81-99); Mean Platelet Vol. 10.7 fl (6.2-12.0); Platelet Count 363 K/mm3 (150-450); RBC Distribution Width CV 12.7 % (11.6-14.6); RBC Distribution Width SD 35.7 fl (35.1-43.9); White Blood Count 14.8 K/mm3 (4.4-11.0)
[2019-07-05 17:52] LABS: Erythrocyte Sedimentation Rate 15 mm/hr (0-20)
== END ==
LOC: MTLAB 15:04
PROVIDERS: Family Provider Family Medicine; PCP Family Medicine; Referring Provider Internal Medicine Gastroenterology; Visit Provider Internal Medicine Gastroenterology
DX: K51.90 Ulcerative colitis, unspecified, without complications (principal)
CPT/HCPCS: 36415; 85027; 85652; 86140

== ENCOUNTER → 2019-09-07 08:11 | Outpatient (CLI) | payer BC, SELFPAY ==
[2018-08-09 15:05] VITALS: BMI 45.8
[2019-09-07 10:21] LABS: ALB/GLOB Ratio 0.8 RATIO (0.9-2.4); AST(SGOT) 10 U/L (15-37); Alanine Aminotransfer ALT/SGPT 30 U/L (13-56); Albumin, Serum 3.7 g/dL (3.2-5.0); Alkaline Phosphatase 94 U/L (45-117); Anion Gap 5 (5-15); BUN 13 mg/dL (7-18); BUN/Creat Ratio 14.8 RATIO (10-20); Calcium,Total 9.3 mg/dL (8.5-10.1); Chloride 100 mmol/L (98-107); Creatinine, Serum 0.88 mg/dL (0.55-1.02); EST Glomerular Filtration Rate 85 mL/min (>60); Est Glom Filt Rate - Afr Amer 102 mL/min (>60); Globulin 4.6 g/dL (2.2-4.2); Glucose 377 mg/dL (74-106); Potassium 3.7 mmol/L (3.5-5.1); Protein, Total 8.3 g/dL (6.4-8.2); Sodium Level 135 mmol/L (136-145)
[2019-09-07 10:36] LABS: Microalbumin,Random Urine 42.1 mg/L (NO RANGE EST.); Microalbumin:Creatinine Ratio 82.4 mg/g CRE (<30 mg/g CRE)
[2019-09-07 11:17] LABS: Hemoglobin A1c 12.2 % (4.2-6.3)
== END ==
LOC: MTLAB 08:12
PROVIDERS: PCP Family Medicine; Referring Provider Nurse Practitioner; Visit Provider Nurse Practitioner
DX: E11.9 Type 2 diabetes mellitus without complications (principal)
CPT/HCPCS: 36415; 80053; 82043; 82570; 83036

== ENCOUNTER → 2019-11-07 14:00 | Outpatient (CLI) | payer BC, SELFPAY ==
[2018-08-09 15:05] VITALS: BMI 45.8
[2019-11-07 14:59] LABS: Erythrocyte Sedimentation Rate 16 mm/hr (0-20)
[2019-11-07 15:00] LABS: Hematocrit 43.1 % (37-47); Mean Corp Hgb Conc 32.5 g/dL (32-36); Mean Corpuscular Hgb 26.8 pg (27.0-32.0); Mean Corpuscular Volume 82.6 fL (81-99); Mean Platelet Vol. 10.6 fl (6.2-12.0); Platelet Count 341 K/mm3 (150-450); RBC Distribution Width CV 12.5 % (11.6-14.6); RBC Distribution Width SD 37.2 fl (35.1-43.9); Red Blood Count 5.22 M/mm3 (4.2-5.4); White Blood Count 11.7 K/mm3 (4.4-11.0)
[2019-11-07 15:30] LABS: ALB/GLOB Ratio 0.7 RATIO (0.9-2.4); AST(SGOT) 13 U/L (15-37); Alanine Aminotransfer ALT/SGPT 31 U/L (13-56); Albumin, Serum 3.4 g/dL (3.2-5.0); Alkaline Phosphatase 81 U/L (45-117); Anion Gap 7 (5-15); BUN 11 mg/dL (7-18); BUN/Creat Ratio 14.5 RATIO (10-20); Calcium,Total 9.2 mg/dL (8.5-10.1); Chloride 101 mmol/L (98-107); Creatinine, Serum 0.76 mg/dL (0.55-1.02); EST Glomerular Filtration Rate 100 mL/min (>60); Est Glom Filt Rate - Afr Amer 121 mL/min (>60); Globulin 4.7 g/dL (2.2-4.2); Glucose 301 mg/dL (74-106); Potassium 3.4 mmol/L (3.5-5.1); Protein, Total 8.1 g/dL (6.4-8.2); Sodium Level 137 mmol/L (136-145)
== END ==
LOC: MTLAB 14:02
PROVIDERS: PCP Family Medicine; Referring Provider Internal Medicine Gastroenterology; Visit Provider Internal Medicine Gastroenterology
DX: K51.90 Ulcerative colitis, unspecified, without complications (principal)
CPT/HCPCS: 36415; 80053; 85027; 85652; 86140

== ENCOUNTER → 2020-03-12 14:08 | Outpatient (CLI) | payer BC, SELFPAY ==
[2018-08-09 15:05] VITALS: BMI 45.8
[2020-03-12 15:25] LABS: Hematocrit 42.6 % (37-47); Hemoglobin 13.5 g/dL (12.0-15.0); Mean Corp Hgb Conc 31.7 g/dL (32-36); Mean Corpuscular Hgb 26.2 pg (27.0-32.0); Mean Corpuscular Volume 82.7 fL (81-99); Mean Platelet Vol. 11.4 fl (6.2-12.0); Platelet Count 360 K/mm3 (150-450); RBC Distribution Width CV 12.9 % (11.6-14.6); RBC Distribution Width SD 38.6 fl (35.1-43.9); Red Blood Count 5.15 M/mm3 (4.2-5.4); White Blood Count 11.7 K/mm3 (4.4-11.0)
[2020-03-12 15:38] LABS: Erythrocyte Sedimentation Rate 35 mm/hr (0-20)
== END ==
PROVIDERS: PCP Family Medicine; Referring Provider Internal Medicine Gastroenterology; Visit Provider Internal Medicine Gastroenterology
DX: K51.90 Ulcerative colitis, unspecified, without complications (principal)
CPT/HCPCS: 36415; 85027; 85652; 86140

== ENCOUNTER → 2020-03-26 15:21 | Outpatient (CLI) | payer BC, SELFPAY ==
[2018-08-09 15:05] VITALS: BMI 45.8
--- NOTE | 2020-03-26 12:45 | COLBX_PTH ---
PATIENT: AARON HYDE LOC: [facility] U#:[id number] AGE/SX: 30/F ROOM: RE03/26/[address]: Dr. Eric Thayer MD : 1995 BED: DIS: SPEC #: [id number] RECD: 03/26/20 15:01 STATUS: IVLMA RAFAEL #: [id number] ABENA: 03/26/20 12:[address]: Eric Thayer DEPT: SURGICAL PATHOLOGY RECD BY: Marcel Posada ENTERED: 03/27/20 09:15 SP TYPE: COLON BX OT DR: Dr. Noah Purcell MD [facility] Tissues: A - Right colon B - Left colon Procedures: Surgery Specimen Level IV HEADER OPERATION: Colonoscopy with biopsies PRE-OP DIAGNOSIS: Ulcerative colitis, chronic / diarrhea TISSUE SUBMITTED: A - Right colon, rule out ulcerative colitis/dysplasia, B - Left colon, rule out ulcerative colitis/dysplasia MICROSCOPIC DIAGNOSIS A. Right colon, biopsy: No pathologic change. No evidence of inflammation. See comment. B. Left colon, biopsy: Mild architectural change. No evidence of inflammation. AM:hayley 03/28/20 COMMENT A. The specimen contains benign, polymorphous lymphoid aggregates. MICROSCOPIC DESCRIPTION Slides are reviewed. GROSS DESCRIPTION A - Received in fixative is one container labeled with the patient's name and designated right colon. The specimen consists of multiple irregular fragments of light bowles soft tissue that in aggregate measure 1 x 0.6 x 0.1 cm. The specimen is totally submitted in one cassette. B - Received in fixative is one container labeled with the patient's name and designated left colon. The specimen consists of multiple irregular fragments of light bowles soft tissue that in aggregate measure 1 x 0.5 x 0.1 cm. The specimen is totally submitted in one cassette. / AM:hayley 03/27/20 TC:5 CPT: 43261 x2
== END ==
PROVIDERS: PCP Family Medicine; Referring Provider Internal Medicine Gastroenterology; Visit Provider Internal Medicine Gastroenterology
DX: R19.7 Diarrhea, unspecified (principal); K51.90 Ulcerative colitis, unspecified, without complications
CPT/HCPCS: 88305

== ENCOUNTER → 2020-04-24 08:23 | Outpatient (CLI) | payer BC, SELFPAY ==
[2018-08-09 15:05] VITALS: BMI 45.8
== END ==
PROVIDERS: PCP Family Medicine; Referring Provider Internal Medicine Gastroenterology; Visit Provider Internal Medicine Gastroenterology
DX: K51.90 Ulcerative colitis, unspecified, without complications (principal)
CPT/HCPCS: 36415

== ENCOUNTER 2021-02-22 17:40 | Outpatient (CLI) | payer BC, SELFPAY ==
[2021-02-22] VITALS (46 sets, daily range): BP systolic 141–195; BP diastolic 79–107; PULSE 103–209; RESP 18–22; TEMP 36.7–37.2; O2SAT 82–99; BMI 54.1
[2021-02-22 18:44] LABS: Hematocrit 32.9 % (37-47); Hemoglobin 10.7 g/dL (12.0-15.0); Mean Corp Hgb Conc 32.5 g/dL (32-36); Mean Corpuscular Hgb 26.8 pg (27.0-32.0); Mean Corpuscular Volume 82.5 fL (81-99); Mean Platelet Vol. 11.7 fl (6.2-12.0); Platelet Count 313 K/mm3 (150-450); RBC Distribution Width CV 13.3 % (11.6-14.6); RBC Distribution Width SD 39.8 fl (35.1-43.9); Red Blood Count 3.99 M/mm3 (4.2-5.4); White Blood Count 14.6 K/mm3 (4.4-11.0)
--- NOTE | 2021-02-22 18:49 | HP.PCM.OB_ITS ---
HPI - General HPI Narrative AARON MITCHELL, is a 26 F who presents from the office with elevated BP. She also reports a headache for the past week. When she checked her BP at home a couple times this past week it was 160's/100's. Maternal Data Information Final JHONATAN: 04/07/21 Gestational age: 33&6 [facility] Medical History (Updated 02/22/21 @ 18:[address] Allyson Sarkar MD) Anemia HTN (hypertension) Hypertension complicating in third trimester Stomach ulcer Type 2 diabetes mellitus Ulcerative colitis Home Medications ferrous sulfate 325 mg PO DAILY 01/20/18 [History Last Taken 02/21/21 13:00 325 mg] Humalog KwikPen Insulin 100 unit/mL subcutaneous See Rx Instructions SC TID #15 ml NS MDD 50 units 07/29/18 [Rx Last Taken 02/22/21 14:30 44 units] aspirin [Aspir-81] 81 mg PO DAILY 02/22/21 [History Last Taken 02/21/21 13:00 81 mg] famotidine [Pepcid] 20 mg PO BID 02/22/21 [History Last Taken 02/22/21 17:00 20 mg] insulin glargine [Lantus Solostar U-100 Insulin] 26 unit SC BID 02/22/21 [History Last Taken 02/22/21 06:00 26 units] vedolizumab [Entyvio] IV 02/22/21 [History Last Taken 02/05/21 0730] Allergy/AdvReac Type Severity Reaction Status Date / Time amoxicillin Allergy Rash Verified 02/22/21 18:28 Sulfa (Sulfonamide Allergy Nausea/Vom/ Verified 02/22/21 18:28 Antibiotics) Diarrhea Family History Unknown Diabetes Social History (Updated 08/10/18 @ 13:10 by Ashlie Borrego NP, [employer]) Smoking Status: Former smoker alcohol intake: current substance use type: does not use NST FHR Rate Baby A Baseline: 135 Variability:: Moderate Accelerations:: 15 x 15 Decelerations:: None Uterine Activity:: quiet Vital Signs Vital Signs Vital Signs: 02/22/21 18:16 02/22/21 18:23 02/22/21 18:28 Temperature Pulse Rate 123 H 209 H 118 H Blood Pressure 181/94 H BP Systolic 181 BP Diastolic 94 Pulse Ox 99 84 99 02/22/21 18:32 02/22/21 18:33 02/22/21 18:36 Temperature 98.0 F Pulse Rate 119 H 120 H Blood Pressure 145/96 H BP Systolic 145 BP Diastolic 96 Pulse Ox 98 02/22/21 18:38 02/22/21 18:40 02/22/21 18:43 Temperature Pulse Rate 119 H 121 H 124 H Blood Pressure 173/94 H BP Systolic 173 BP Diastolic 94 Pulse Ox 98 99 02/22/21 18:45 02/22/21 18:48 Temperature Pulse Rate 117 H 115 H Blood Pressure 181/95 H 141/102 H BP Systolic 181 141 BP Diastolic 95 102 Pulse Ox Weight Weight: 335 lb 5.169 oz Body Mass Index (BMI) 54.1 Labs Labs Labs: Hct 32.9 % (37-47) L Hgb 10.7 g/dL (12.0-15.0) L Hep Bs Antigen Negative (Negative) Miscellaneous Test Assessment & Plan (1) Hypertension complicating in third trimester: COMMENT: 33&6 PLAN: Elevated BP's - patient with chronic hypertension & likely severe preeclampsia. Labs reviewed. IV labetalol ordered for BP's 170's-190's systolic. Starting Magnesium sulfate. FWB - BPP 02/03 at office today. BMZ ordered. COVID testing in progress Patient discussed with ([facility]) and plan to transport patient for further evaluation & treatment. (2) Uncontrolled type 2 diabetes mellitus without complication, without long- term current use of insulin:
[2021-02-22 18:55] LABS: AST(SGOT) 16 U/L (15-37); Alanine Aminotransfer ALT/SGPT 14 U/L (13-56); Creatinine, Serum 0.58 mg/dL (0.55-1.02); EST Glomerular Filtration Rate 135 mL/min (>60); Est Glom Filt Rate - Afr Amer 164 mL/min (>60); Estimated Creatinine Clearance 138.81 ml/min; Uric Acid 6.1 mg/dL (2.6-6.0)
[2021-02-22] MEDS: Lactated Ringers 1,000 ML 100 ML IV (19:00)
[2021-02-22] MEDS: Labetalol (Prefilled) 20 MG/4 ML IV (19:05)
[2021-02-22] MEDS: Labetalol (Prefilled) 20 MG/4 ML 40 MG IV (19:18)
[2021-02-22] MEDS: Magnesium Sulfate 4gm/100mL 4 GM/100 ML IV.SOLN. IV (19:20)
[2021-02-22 19:32] LABS: Bedside Glucose 84 mg/dL (70-110)
[2021-02-22] MEDS: Magnesium Sulfate 20 GM/500 ML BAG IV (19:50)
[2021-02-22] MEDS: Labetalol 100 MG/20 ML Vial 80 MG IV (19:54)
[2021-02-22] MEDS: Labetalol 200 MG Tablet PO (20:24)
[2021-02-22] MEDS: Betamethasone/Betamethasone 30 MG/5 ML Vial 12 MG IM (20:30)
[2021-02-22] MEDS: hydrALAZINE 20 MG/ML Vial 10 MG IV (20:47)
--- NOTE | 2021-02-26 15:48 | NURSING ---
IV titration for Mag Sulfate and LR adjusted for 02/22/21 @ 2123 per request of director.
== END 2021-02-22 21:17 ==
LOC: WPOUT 17:51 → WP 17:58
PROVIDERS: PCP Family Medicine; Visit Provider Obstetrics & Gynecology
DX: O10.913 Unspecified pre-existing hypertension complicating pregnancy, third trimester (principal); O24.913 Unspecified diabetes mellitus in pregnancy, third trimester; E11.65 Type 2 diabetes mellitus with hyperglycemia; Z79.82 Long term (current) use of aspirin; Z79.4 Long term (current) use of insulin; Z87.891 Personal history of nicotine dependence; Z3A.33 33 weeks gestation of pregnancy
CPT/HCPCS: 36415; 59025; 59050; 82565; 82962; 84450; 84460; 84550; 85027; 87426; 94760; 96372; 99218; J7120; G0378; J0702

== ENCOUNTER → 2021-12-31 | Outpatient (CLI) | payer BC, SELFPAY ==
[2021-12-31 18:01] LABS: Hematocrit 41.6 % (37-47); Hemoglobin 13.8 g/dL (12.0-15.0); Mean Corp Hgb Conc 33.2 g/dL (32-36); Mean Corpuscular Hgb 27.5 pg (27.0-32.0); Mean Platelet Vol. 10.8 fl (6.2-12.0); Platelet Count 313 K/mm3 (150-450); RBC Distribution Width CV 13.4 % (11.6-14.6); RBC Distribution Width SD 39.8 fl (35.1-43.9); Red Blood Count 5.01 M/mm3 (4.2-5.4); White Blood Count 9.3 K/mm3 (4.4-11.0)
[2021-12-31 20:37] LABS: ALB/GLOB Ratio 0.7 RATIO (0.9-2.4); AST(SGOT) 20 U/L (15-37); Alanine Aminotransfer ALT/SGPT 23 U/L (13-56); Albumin, Serum 3.3 g/dL (3.2-5.0); Alkaline Phosphatase 92 U/L (45-117); Anion Gap 9 (5-15); BUN 7 mg/dL (7-18); Calcium,Total 9.1 mg/dL (8.5-10.1); Chloride 94 mmol/L (98-107); Creatinine, Serum 0.78 mg/dL (0.55-1.02); EST Glomerular Filtration Rate 95 mL/min (>60); Est Glom Filt Rate - Afr Amer 115 mL/min (>60); Globulin 4.7 g/dL (2.2-4.2); Sodium Level 130 mmol/L (136-145)
[2021-12-31 21:41] LABS: Glucose 624 mg/dL (74-106)
== END | disposition home or self-care (01) ==
LOC: MTLAB 15:12
PROVIDERS: PCP Family Medicine; Referring Provider Internal Medicine Gastroenterology; Visit Provider Internal Medicine Gastroenterology
DX: K51.90 Ulcerative colitis, unspecified, without complications (principal)
CPT/HCPCS: 36415; 80053; 85027; 86140

== ENCOUNTER → 2022-01-02 | Outpatient (CLI) | payer BC, MEDICAID, SELFPAY ==
[2022-01-07 20:08] LABS: Calprotectin, Stool 99 ug/g (0-120)
== END | disposition home or self-care (01) ==
LOC: MTLAB 11:56
PROVIDERS: PCP Family Medicine; Referring Provider Internal Medicine Gastroenterology; Visit Provider Internal Medicine Gastroenterology
DX: K51.90 Ulcerative colitis, unspecified, without complications (principal)
CPT/HCPCS: 83993

== ENCOUNTER → 2022-01-13 | Outpatient (CLI) | payer BC, MEDICAID, SELFPAY | END | disposition home or self-care (01) | PROVIDERS: PCP Family Medicine; Referring Provider Internal Medicine Gastroenterology; Visit Provider Internal Medicine Gastroenterology | DX: K51.90 Ulcerative colitis, unspecified, without complications (principal) | CPT/HCPCS: 36415 ==

== ENCOUNTER 2022-03-05 02:14 | Emergency (ER) | payer OTHER, MEDICAID, SELFPAY ==
[2022-03-05 02:15] VITALS: BP 146/104; PULSE 116; RESP 17; TEMP 35.7; O2SAT 98; BMI 38.4
--- NOTE | 2022-03-05 02:24 | EX.ED.VIS.HA ---
HPI History of Present Illness Chief Complaint: Headache Informant: patient Narrative Narrative: 3-day history nontraumatic posterior headache. Photophobia and phonophobia. Nausea vomiting x2 the day. Past 2 days congestion myalgias. Denies fevers. Mild cough. No diarrhea. COVID vaccinated, had COVID infection prior to vaccination in the past. Denies sick contacts. No testing performed the last 3 days. History of diabetes insulin-dependent, sugars of been in the 400 range did not check it today. History of ulcerative colitis on immunosuppressants of Entyvio every 6 to 8 weeks. Prior similar symptoms: No PFSH PFS Medical History Anemia HTN (hypertension) Hypertension complicating in third trimester Stomach ulcer Type 2 diabetes mellitus Ulcerative colitis Home Medications ferrous sulfate 325 mg (65 mg iron) tablet 325 mg PO DAILY anemia 01/20/18 [History Last Taken 02/21/21 13:00 325 mg] Humalog KwikPen Insulin 100 unit/mL subcutaneous (insulin lispro) See Rx Instructions subcut TID #15 mL 07/29/18 [Rx Last Taken 02/22/21 14:30 44 units] aspirin 81 mg tablet,delayed release 81 mg PO DAILY BP 02/22/21 [History Last Taken 02/21/21 13:00 81 mg] famotidine 20 mg tablet (Pepcid) 20 mg PO BID heartburn 02/22/21 [History Last Taken 02/22/21 17:00 20 mg] insulin glargine 100 unit/mL (3 mL) subcutaneous pen (Lantus Solostar U-100 Insulin) 26 unit subcut BID 02/22/21 [History Last Taken 02/22/21 06:00 26 units] vedolizumab 300 mg intravenous solution (Entyvio) IV ulceritive colitis 02/22/21 [History Last Taken 02/05/21 0730] Allergy/AdvReac Type Severity Reaction Status Date / Time amoxicillin Allergy Rash Verified 03/05/22 02:21 Sulfa (Sulfonamide Allergy Nausea/Vom/ Verified 03/05/22 02:21 Antibiotics) Diarrhea Family History Unknown Diabetes Social History Smoking Status: Former smoker alcohol intake: current substance use type: does not use ROS ROS ED Constitutional Constitutional ED: Denies chills, fever(s) or sweats Eyes Eyes: Denies change in vision ENT ENT ED: Denies dysphagia or sore throat Cardiovascular Cardiovascular: Denies chest pain, leg edema, palpitations or racing heartbeat Respiratory/Chest Respiratory/Chest: Reports cough; Denies dyspnea or dyspnea on exertion Gastrointestinal Gastrointestinal: Reports nausea and vomiting; Denies abdominal pain or diarrhea Genitourinary Genitourinary ED: Denies dysuria, hematuria or urinary frequency Musculoskeletal Musculoskeletal: Denies back pain, extremity pain or neck pain Integumentary Denies rash or wounds Neurologic Neurologic: Reports headache(s); Denies paresthesias or weakness EXAM Physical Exam Const Vital Signs: 03/05/22 02:15 03/05/22 04:07 Temperature 96.3 F L Temperature Source Temporal Pulse Rate 116 H 78 Respiratory Rate 17 17 Blood Pressure 146/104 H 146/74 H Blood Pressure Mean 118 98 Pulse Ox 98 99 Oxygen Delivery Method Room Air Room Air Positive well nourished, well developed and obese General Appearance ED: well developed and NAD Nutritional Appearance: obese HEENT Reports moist mucous membranes normocephalic and atraumatic Eyes PERRL, EOMs intact bilaterally and conjunctivae normal General Eye ED: Yes normal appearance of both eyes Neck no lymphadenopathy, supple and no meningeal signs General: Negative for tenderness Chest Wall Chest: Negative for tenderness Resp normal respiratory effort and normal air movement Effort and Inspection: symmetric chest movement; Negative for respiratory distress Cardio regular rhythm and no murmurs Rate: tachycardic Peripheral Pulses: pulses 2+ throughout GI normal to inspection, nondistended, normoactive bowel sounds and non-tender Palpation: Negative for guarding or rebound tenderness present Back/Spine no CVA tenderness and no thoracic nor lumbar tenderness Extremity normal to inspection General Extremety ED: Negative for edema or tenderness General Extremity: Negative for edema Neuro oriented x3, CN's II-XII intact bilaterally and no sensory deficits noted Sensorium / Orientation: awake and alert Skin no rashes or lesions noted and no wounds MDM MDM MDM Narrative Medical decision making narrative: Patient with tachycardia on arrival [id number] glucose 440. Given liter of fluids. COVID testing negative. Treated Reglan Benadryl for headache symptoms. Labs glucose 478 in the lab anion gap 13. Sodium 132 pseudo from her hyperglycemia. 0315: Feeling better with her headache symptoms. She did not take her insulin today. Reports with this level she normally gives herself 10 units of insulin. This will be ordered. Discussed with patient monitoring glucose and following her insulin regimen. Plan for discharge with outpatient follow-up. All questions were answered. Lab Data Attestation: I reviewed the patient's lab results. Labs: Laboratory Results - last 24 hr 03/05/22 03/05/22 03/05/22 02:35 02:35 02:47 WBC 11.3 H RBC 4.68 Hgb 12.9 Hct 38.8 MCV 82.9 MCH 27.6 MCHC 33.2 RDW Std Deviation 38.5 RDW Coeff of Rosa 13.0 Plt Count 285 MPV 10.5 Immature Gran % (Auto) 0.400 Neut % (Auto) 65.3 Lymph % (Auto) 27.0 Major % (Auto) 6.5 Eos % (Auto) 0.5 Baso % (Auto) 0.3 Absolute Neuts (auto) 7.4 Absolute Lymphs (auto) 3.05 Nucleated RBC % 0 Sodium 132 L Potassium 3.8 Chloride 96 L Carbon Dioxide 23.0 Anion Gap 13 BUN 20 H Creatinine 0.63 Estim Creat Clear Calc 126.68 Est GFR (MDRD) Af Amer 147 Est GFR (MDRD) Non-Af 122 BUN/Creatinine Ratio 31.8 H Glucose 478 H* Calcium 9.3 POC Glucose 440 H 03/05/22 04:02 WBC RBC Hgb Hct MCV MCH MCHC RDW Std Deviation RDW Coeff of Rosa Plt Count MPV Immature Gran % (Auto) Neut % (Auto) Lymph % (Auto) Major % (Auto) Eos % (Auto) Baso % (Auto) Absolute Neuts (auto) Absolute Lymphs (auto) Nucleated RBC % Sodium Potassium Chloride Carbon Dioxide Anion Gap BUN Creatinine Estim Creat Clear Calc Est GFR (MDRD) Af Amer Est GFR (MDRD) Non-Af BUN/Creatinine Ratio Glucose Calcium POC Glucose 352 H Discharge Plan Triage Chief Complaint: Headache ED Provider: Shukri Vallejo Dx/Rx/DC Orders Clinical Impression: Viral syndrome, Ulcerative colitis, Headache, Hyperglycemia without ketosis Instructions: ED Diabetic Hyperglycemia, ED Headache Unspecified, ED Viral Syndrome (Adult) Prescriptions: No Action ferrous sulfate 325 MG tablet 325 mg PO DAILY aspirin [Aspir-81] 81 mg Tablet,Delayed Release (Dr/Ec) 81 mg PO DAILY famotidine [Pepcid] 20 mg Tablet 20 mg PO BID Entyvio 300 mg Recon Soln IV Rx Instructions: every 8 weeks Lantus Solostar U-100 Insulin 100 unit/mL (3 mL) insulin pen 26 unit SC BID Humalog KwikPen Insulin 100 unit/mL insulin pen See Rx Instructions SC TID MDD 50 units Qty: 15 11RF Dose Instruction: per sliding scale 1 units per 40 BG points over 150 SC TID; per sliding scale SC TID 1 units per 40 BG points over 150 Rx Instructions: 44 units TID before meals Primary Care Provider: Noah Purcell Referrals: Noah Purcell MD [Primary Care Provider] - 3-5 Days Activity Restrictions/Additional Instructions: COVID-negative. Glucose 478 normal anion gap. Status post 10 units of short acting insulin. Take your insulin as scheduled at home. Monitor your glucose. Follow-up with your doctor. Return if any worsening symptoms. Disposition Disposition: Home, Self Care Discharge Date/Time: 03/05/22 04:08
[2022-03-05 02:41] LABS: Absolute Lymphocyte Count 3.05 X10^3/uL (0.83-4.51); Absolute Neutrophil Count 7.4 X10^3/uL (2.0-7.7); Basophil# 0.03 X10^3/uL; Basophil% 0.3 % (0-1); Eosinophil# 0.06 X10^3/uL; Eosinophils% 0.5 % (0-5); Hematocrit 38.8 % (37-47); Hemoglobin 12.9 g/dL (12.0-15.0); Lymphocyte # 3.05 X10^3/ul (0.83-4.51); Mean Corp Hgb Conc 33.2 g/dL (32-36); Mean Corpuscular Hgb 27.6 pg (27.0-32.0); Mean Corpuscular Volume 82.9 fL (81-99); Mean Platelet Vol. 10.5 fl (6.2-12.0); Monocyte# 0.73 X10^3/uL; Monocyte% 6.5 % (0-10); NRBC Flagged by Analyzer 0 % (0-5); Neutrophil # 7.37 X10^3/uL (2.7-7.7); Neutrophil % 65.3 % (47-70); Platelet Count 285 K/mm3 (150-450); RBC Distribution Width SD 38.5 fl (35.1-43.9); Red Blood Count 4.68 M/mm3 (4.2-5.4); White Blood Count 11.3 K/mm3 (4.4-11.0)
[2022-03-05] MEDS: Metoclopramide 10 MG/2 ML Vial IV (02:42)
[2022-03-05] MEDS: 0.9% Normal Saline 1,000 ML 1000 ML IV (02:42)
[2022-03-05] MEDS: DiphenhydrAMINE 50 MG/ML Syringe 25 MG IV (02:42)
[2022-03-05 03:06] LABS: Bedside Glucose 440 mg/dL (74-106)
[2022-03-05 03:09] LABS: Anion Gap 13 (5-15); BUN 20 mg/dL (7-18); BUN/Creat Ratio 31.8 RATIO (10-20); Calcium,Total 9.3 mg/dL (8.5-10.1); Chloride 96 mmol/L (98-107); Creatinine, Serum 0.63 mg/dL (0.55-1.02); EST Glomerular Filtration Rate 122 mL/min (>60); Est Glom Filt Rate - Afr Amer 147 mL/min (>60); Estimated Creatinine Clearance 126.68 ml/min; Glucose 478 mg/dL (74-106); Potassium 3.8 mmol/L (3.5-5.1); Sodium Level 132 mmol/L (136-145)
[2022-03-05] MEDS: Insulin Lispro 100 UNIT/ML INSULN.PEN 10 UNIT SC (03:21)
[2022-03-05 04:07] VITALS: BP 146/74; PULSE 78; RESP 17; O2SAT 99
[2022-03-05 04:20] LABS: Bedside Glucose 352 mg/dL (74-106)
== END 2022-03-05 04:08 | disposition home or self-care (01) ==
PROVIDERS: Emergency Provider Emergency Medicine; PCP Family Medicine; Visit Provider Emergency Medicine
DX: B34.9 Viral infection, unspecified (principal); K51.90 Ulcerative colitis, unspecified, without complications; E11.65 Type 2 diabetes mellitus with hyperglycemia; E66.9 Obesity, unspecified; Z87.891 Personal history of nicotine dependence
CPT/HCPCS: 80048; 82962; 85025; 87811; 96374; 96375; 99284

== ENCOUNTER 2023-12-02 15:16 | Outpatient (CLI) | payer OTHER, SELFPAY ==
[2023-12-02] VITALS (10 sets, daily range): BP systolic 114–120; BP diastolic 60–71; PULSE 118–138; RESP 18; TEMP 36.6; O2SAT 97–100; BMI 42.6
[2023-12-02] MEDS: Lactated Ringers 1,000 ML 999 ML IV (16:35)
[2023-12-02] MEDS: Mag Hydrox/Al Hydrox/Simeth 30 ML UDC PO (16:41)
[2023-12-02 16:47] LABS: Bacteria 0 SEEN /hpf (None Seen); Mucous, Urine 0 SEEN /hpf (<or=2+); Red Blood Cells-Urine 0 SEEN /hpf (0-5)
[2023-12-02 16:49] LABS: Hematocrit 38.8 % (37-47); Hemoglobin 12.7 g/dL (12.0-15.0); Mean Corp Hgb Conc 32.7 g/dL (32-36); Mean Corpuscular Hgb 27.5 pg (27.0-32.0); Mean Corpuscular Volume 84.2 fL (81-99); Mean Platelet Vol. 11.4 fl (6.2-12.0); Platelet Count 318 K/mm3 (150-450); RBC Distribution Width CV 12.8 % (11.6-14.6); RBC Distribution Width SD 38.7 fl (35.1-43.9); Red Blood Count 4.61 M/mm3 (4.2-5.4); White Blood Count 13.1 K/mm3 (4.4-11.0)
[2023-12-02 17:21] LABS: Color, Urine Yellow (Yellow); Glucose, Dipstick Normal (Normal); Ketone-Dipstick 5 mg/dl (Negative); Leukocyte Esterase-Dipstick 500 /ul (Negative); Nitrite-Dipstick Negative (Negative); Occult Blood-Urine 10 /ul (Negative); Protein-Dipstick 30 mg/dl (Negative); Specific Gravity, Urine 1.015 (1.002-1.030); Urine Clarity Sl. Cloudy (Clear); Urine Urobilinogen 1 mg/dl (Normal); Urine pH 6.5 (5.0 - 8.0)
[2023-12-02 17:22] LABS: Urine Bilirubin Dipstick 1 mg/dL (Negative)
[2023-12-02 17:24] LABS: AST(SGOT) 9 U/L (15-37); Alanine Aminotransfer ALT/SGPT 10 U/L (13-56); Creatinine, Serum 0.43 mg/dL (0.55-1.02); EST Glomerular Filtration Rate 188 mL/min (>60); Est Glom Filt Rate - Afr Amer 228 mL/min (>60); Estimated Creatinine Clearance 259.17 ml/min; Uric Acid 3.7 mg/dL (2.6-6.0)
[2023-12-02 17:42] LABS: Protein, Urine (Random) 52.1 mg/dL (<11.9); Protein:Creat Ratio 185 mg/g CRE (0-200)
[2023-12-02 17:45] LABS: Squamous Epithelial Cells - UA 10-25 SEEN /hpf (5-10); White Blood Cells 0-5 SEEN /hpf (0-5)
--- NOTE | 2023-12-03 10:00 | OB.TRI.NOTE ---
HPI - General General Date of Admission: 12/02/23 Date of Service: 12/02/23 Chief Complaint: elevated BP HPI Narrative AARON MITCHELL, is a 28 F high risk multigravida patient whose has been complicated to date by maternal obesity with BMI of 42, type 2 diabetes, history of previous , history of previous preeclampsia, and chronic hypertension presented complaining of increased blood pressure. She was instructed to come to labor and delivery because she was also complaining of some epigastric type pain. She denied any headache or visual changes. Maternal Data Information Final JHONATAN: 01/30/24 Gestational age: 31 5/7 [facility] Medical History Anemia HTN (hypertension) Hypertension complicating in third trimester Stomach ulcer Type 2 diabetes mellitus Ulcerative colitis Home Medications ?Medication ?Instructions ?Recorded ?Last Taken ?Type ferrous sulfate 325 mg (65 mg 325 mg PO DAILY anemia 01/20/18 12/02/23 11:30 History iron) tablet 325 mg Humalog KwikPen Insulin 100 See Rx Instructions subcut TID #15 07/29/18 12/02/23 08:00 Rx unit/mL subcutaneous (insulin mL 20 lispro) aspirin 81 mg tablet,delayed 81 mg PO DAILY BP 02/22/21 12/02/23 08:00 History release 162 mg famotidine 20 mg tablet (Pepcid) 20 mg PO BID heartburn 02/22/21 12/02/23 11:30 History 20 mg insulin glargine 100 unit/mL (3 26 unit subcut BID 02/22/21 12/01/23 22:00 History mL) subcutaneous pen (Lantus 45 unit Solostar U-100 Insulin) vedolizumab 300 mg intravenous IV ulceritive colitis 02/22/21 02/05/21 History solution (Entyvio) 0730 Allergy/AdvReac Type Severity Reaction Status Date / Time amoxicillin Allergy Rash Verified 12/02/23 15:57 Sulfa (Sulfonamide Allergy Nausea/Vom/ Verified 12/02/23 15:57 Antibiotics) Diarrhea Family History Unknown Diabetes Social History Smoking Status: Former smoker alcohol intake: current substance use type: does not use NST FHR Rate Baby A Baseline: 130 Variability:: Moderate Accelerations:: 15 x 15 Decelerations:: None NST Reactive:: Yes FHR Category:: Category I Uterine Activity:: no regular ctxs Assessment & Plan (1) Hypertension complicating in third trimester: COMMENT: 31 (2) Uncontrolled type 2 diabetes mellitus without complication, without long-term current use of insulin: PLAN: Patient's epigastric discomfort resolved with Mylanta. Consistent with dyspepsia. No evidence of preeclampsia. heart tones are category 1. Follow-up in the office as scheduled or as needed. Continue current med regimen. (3) Supervision of other high risk pregnancies, third trimester:
== END 2023-12-02 18:10 | disposition home or self-care (01) ==
LOC: WPOUT 15:21 → WP 15:23 → WPOUT 15:29
PROVIDERS: Obstetrics & Gynecology; PCP Family Medicine; Referring Provider Advanced Practice Midwife; Visit Provider Advanced Practice Midwife
DX: O16.3 Unspecified maternal hypertension, third trimester (principal); Z3A.31 31 weeks gestation of pregnancy; O24.913 Unspecified diabetes mellitus in pregnancy, third trimester
CPT/HCPCS: 96360; 36415; 59025; 59050; 81001; 82565; 82570; 84156; 84450; 84460; 84550; 85027; 99212; 99221; G0378; G0463

== ENCOUNTER 2024-01-11 05:21 | Inpatient (IN) | payer BC, SELFPAY ==
[2024-01-11] VITALS (17 sets, daily range): BP systolic 120–150; BP diastolic 69–99; PULSE 78–128; RESP 15–20; TEMP 36.2–37; O2SAT 97–99; BMI 38.2
--- NOTE | 2024-01-11 | FALS_PTH ---
PATIENT: AARON HYDE LOC: WP U#:[id number] AGE/SX: 28/F ROOM: WP004 RE01/11/[address]: Dr. Cynthia Segura DO : 1995 BED: 1 DIS: 01/12/2024 SPEC #: [id number] RECD: 01/11/24 10:28 STATUS: VILMA REWale #: [id number] ABENA: 01/11/24 00:[address]: Cynthia Segura DEPT: SURGICAL PATHOLOGY RECD BY: Marcel Posada ENTERED: 01/11/24 11:06 SP TYPE: FALL TUBES OTHR DR: Dr. Noah Purcell MD Tissues: Fallopian tube Procedures: Surgery Specimen Level II HEADER OPERATION: Tubal ligation PRE-OP DIAGNOSIS: Sterilization TISSUE SUBMITTED: Fallopian tubes MICROSCOPIC DIAGNOSIS Bilateral fallopian tubes, salpingectomy: Bilateral fallopian tubes, no pathologic diagnosis. DONALD: 01/12/2024 MICROSCOPIC DESCRIPTION Slides are reviewed. GROSS DESCRIPTION Received in fixative is one container labeled with the patient's name and designated bilateral fallopian tubes-right tube suture. The specimen consists of bilateral fallopian tubes including fimbrial ends. Right fallopian tube measures 8.0 cm in length and 0.7 cm in diameter. Left fallopian tube measures 9.0cm in length and 0.7cm in diameter. Sections reveal unremarkable cut surfaces. Dental Hygienist sections are submitted in two cassettes. 1- right fallopian tube, 2- left fallopian tube. SJ: 01/11/2024 TC:4 CPT: 39387 x2
[2024-01-11] MEDS: Lactated Ringers 1,000 ML 999 ML IV (05:45)
[2024-01-11 06:09] LABS: Absolute Lymphocyte Count 3.94 X10^3/uL (0.83-4.51); Absolute Neutrophil Count 6.5 X10^3/uL (2.0-7.7); Basophil# 0.03 X10^3/uL; Basophil% 0.3 % (0-1); Eosinophil# 0.05 X10^3/uL; Eosinophils% 0.4 % (0-5); Hematocrit 35.2 % (37-47); Hemoglobin 11.5 g/dL (12.0-15.0); Lymphocyte # 3.94 X10^3/ul (0.83-4.51); Lymphocyte % 34.4 % (19-41); Mean Corp Hgb Conc 32.7 g/dL (32-36); Mean Corpuscular Hgb 27.9 pg (27.0-32.0); Mean Corpuscular Volume 85.4 fL (81-99); Mean Platelet Vol. 12.6 fl (6.2-12.0); Monocyte# 0.87 X10^3/uL; Monocyte% 7.6 % (0-10); NRBC Flagged by Analyzer 0 % (0-5); Neutrophil # 6.51 X10^3/uL (2.7-7.7); Neutrophil % 56.8 % (47-70); Platelet Count 270 K/mm3 (150-450); RBC Distribution Width CV 13.2 % (11.6-14.6); RBC Distribution Width SD 41.2 fl (35.1-43.9); Red Blood Count 4.12 M/mm3 (4.2-5.4); White Blood Count 11.5 K/mm3 (4.4-11.0)
[2024-01-11] MEDS: Acetaminophen 500 MG Tablet 1000 MG PO ×3 (06:23→18:23)
[2024-01-11 06:35] LABS: Bedside Glucose 74 mg/dL (74-106)
[2024-01-11] MEDS: Lactated Ringers 1,000 ML 150 ML IV (06:54)
[2024-01-11] MEDS: Sodium Citrate/Citric Acid 30 ML UDC PO (06:54)
[2024-01-11] MEDS: Gentamicin IV 300 MG in Dextrose 5%-Water (50mL Bag) 50 ML 100 MG IVPB (07:28)
[2024-01-11] MEDS: Clindamycin 900 MG/50 ML BAG 75 MG IV (07:42)
[2024-01-11 07:49] LABS: Syphilis Antibodies Non-reactive
--- NOTE | 2024-01-11 09:00 | PCM.HP.OB ---
HPI - General General Date of Admission: 01/11/24 Date of Service: 01/11/24 Chief Complaint: scheduled section HPI Narrative AARON MITCHELL, is a 28 F who presents for a scheduled section per [facility]. She offers no complaints. Requests sterilization. [facility] Medical History (Updated 01/11/24 @ 09:[address] Cynthia Segura, DO) Hypertension complicating in third trimester Stomach ulcer HTN (hypertension) Type 2 diabetes mellitus Anemia Ulcerative colitis Home Medications ?Medication ?Instructions ?Recorded ?Last Taken ?Type ferrous sulfate 325 mg (65 mg 325 mg PO DAILY anemia 01/20/18 01/10/24 History iron) tablet Humalog KwikPen Insulin 100 See Rx Instructions subcut TID 07/29/18 01/10/24 Rx unit/mL subcutaneous (insulin diabetes #15 mL lispro) aspirin 81 mg tablet,delayed 81 mg PO DAILY BP 02/22/21 01/10/24 History release famotidine 20 mg tablet (Pepcid) 20 mg PO BID heartburn 02/22/21 01/11/24 History insulin glargine 100 unit/mL (3 26 unit subcut BID diabetes 02/22/21 01/10/24 History mL) subcutaneous pen (Lantus Solostar U-100 Insulin) amlodipine .ROUTE htn 01/11/24 01/10/24 History Allergy/AdvReac Type Severity Reaction Status Date / Time amoxicillin Allergy Rash Verified 01/11/24 05:45 Sulfa (Sulfonamide Allergy Nausea/Vom/ Verified 01/11/24 05:45 Antibiotics) Diarrhea Family History Unknown Diabetes Surgical History Previous section Social History (Updated 01/11/24 @ 05:56 by Luis Lassiter) household members: significant other, family and children housing: house number of children: 1 service: No current occupational status: employed current occupation: [employer] employee current occupational exposures/hazards: No pets and animals: No Smoking Status: Former smoker alcohol intake: current substance use type: does not use History Elective abortions Hx Para 1 Spontaneous abortions Hx # Term Pregnancies Ectopic pregnancies Hx # Pregnancies Multiple births # of living children Vital Signs Vital Signs Vital Signs: 01/11/24 06:00 01/11/24 06:00 01/11/24 06:00 Temperature Temperature Source Temporal Pulse Rate 128 H Respiratory Rate Blood Pressure 128/82 H Blood Pressure Mean BP Systolic 128 BP Diastolic 82 Blood Pressure Source Blood Pressure Position Blood Pressure Location Pulse Ox Oxygen Delivery Method 01/11/24 06:00 01/11/24 06:00 01/11/24 06:00 Temperature 97.8 F Temperature Source Pulse Rate Respiratory Rate 16 Blood Pressure Blood Pressure Mean BP Systolic BP Diastolic Blood Pressure Source Blood Pressure Position Blood Pressure Location Pulse Ox 98 Oxygen Delivery Method 01/11/24 06:18 Temperature 97.8 F Temperature Source Temporal Pulse Rate 128 H Respiratory Rate 16 Blood Pressure 128/82 H Blood Pressure Mean 97 BP Systolic BP Diastolic Blood Pressure Source Monitor Blood Pressure Position Semi-Fowlers Blood Pressure Location Right Arm Pulse Ox 98 Oxygen Delivery Method Room Air Weight Weight: 251 lb 1.704 oz Body Mass Index (BMI) 38.2 Physical Exam Const alert and no apparent distress General Appearance: comfortable HEENT normocephalic Chest inspection of chest normal Resp normal respiratory effort Cardio regular rate GI soft to palpation, non-tender and non-distended Extremity normal to inspection Labs Labs Labs: Antibody Screen Pending Hct 35.2 % (37-47) L Hgb 11.5 g/dL (12.0-15.0) L Syphilis Total Ab Non-reactive Hep Bs Antigen Negative (Negative) Miscellaneous Test Assessment & Plan (1) 37 weeks gestation of : PLAN: Discussed r/b/a repeat section with bilateral salpingectomy and consent signed. Patient requests to proceed. Delivery around 37 week gestation per [facility] recommendations. Routine pre op care. (2) Chronic hypertension: (3) Ulcerative colitis: (4) Type 2 diabetes mellitus: (5) Request for sterilization: (6) Obesity affecting :
--- NOTE | 2024-01-11 09:03 | OP.PCM_ITS ---
Problems Associated Problem List Diagnoses (1) Obesity affecting : (2) Request for sterilization: (3) Type 2 diabetes mellitus: (4) Chronic hypertension: (5) 37 weeks gestation of : (6) Ulcerative colitis: Report of Operation Date of Procedure: 01/11/24 Pre-Operative Diagnosis: 37 week gestation, single IUP, cHTN, type 2 diabetes, obesity, history section, request for sterilization Post-Operative Diagnosis: As above Surgery/Procedure Performed:: RLTCS via pfannenstiel incision Bilateral salpingectomy Description of Surgical Findings:: VFI in cephalic presentation with copious/large amount of clear fluid. Apgars 8, 7. Normal appearing placenta. Normal appearing uterus and bilateral adnexa. Fascia dense and adhered to rectus muscles. Minimal adhesions of bladder to anterior uterus. Surgeon: Cynthia Segura senior consumer insights consultant: Alec FERRERA senior consumer insights consultant: Sherri BERG Type of Anesthesia: Spinal Special Medications: None Specimen's removed: Placenta Bilateral fallopian tubes Drains: Rasheed Estimated Blood Loss (mL): 700 Fluids Replaced: 1000 mL Description of Procedure: The patient was taken to the operating where spinal anesthesia was found to be adequate. She was prepped and draped in the dorsal supine position with a leftward tilt. A Pfannenstiel skin incision was made with a scalpel and this was carried down to the underlying layer of fascia. The fascia was incised in midline. The fascial incision was extended laterally using Moreland scissors. The fascia was tented and dissected off the rectus muscles both cephalad and caudad with sharp dissection. The rectus muscles were in the midline bluntly. The peritoneum was entered with sharp dissection with good visualization of the bladder. The peritoneal incision was extended bluntly with lateral traction. A bladder blade was inserted. A bladder flap was created. A low transverse incision was made on the uterus with a scalpel. The uterine incision was extended with cephalad and caudad traction. A large amount of amniotic fluid was noted, and the head was elevated and membranes were ruptured for copious clear fluid using an Allis clamp. The head of the infant was delivered in flexed position. A loose nuchal cord x 1 was reduced. The shoulders and body of the were delivered without traction, force, or delay. The cord was clamped and cut after slight delay and the was handed off to waiting nursery staff. The placenta was removed with manual extraction. The uterus was cleared of all clot and debris. The uterus was exteriorized. The hysterotomy was closed with 1-0 Vicryl in a running locked fashion. Several additional [id number] sutures were placed for hemostasis. Confirmed that the patient desired sterilization. The patient requested sterilization and understands it is permanent and irreversible with a risk of regret. The right fallopian tube was followed out to the fimbriated end and elevated with Ari clamps. The LigaSure device was used to serially clamp, cauterize, and transect the mesosalpinx hugging adjacent to the fallopian tube until reaching level of the cornua. Once at the level of the cornua the fallopian tube was transected. The left fallopian tube was followed out to the fimbriated end and elevated using Air clamps. The LigaSure device was used to serially clamp, cauterize, and transect along the mesosalpinx hugging adjacent to the fallopian tube until reaching level of the cornua. Once at the level of the cornua the fallopian tube was transected. Bilateral fallopian tubes were sent to pathology for review. Hemostasis was confirmed. The uterus was placed back into the abdomen. Hemostasis was again confirmed of the adnexa and hysterotomy. The peritoneum was unable to be reapproximated due to omental adhesions along the left side of the peritoneal incision. The subfascial space was made hemostatic with the Bovie cautery. The fascia was closed with STRATAFIX in a running fashion. Subcutaneous space was irrigated and made hemostatic with Bovie cautery. The subcutaneous space was reapproximated with 3-0 Vicryl. The skin was closed with 4-0 Monocryl in a subcuticular fashion and a dressing was placed. Instrument, sharp, sponge counts were correct and the patient was taken to recovery room in stable condition. Assistants Alec FERRERA and Angela BERG assisted with draping the patient, delivery of the , and closure. Grafts/Implants Used: None Procedure Start Time: 07:55 Procedure Stop Time: 08:56 Complications None Admit VTE Documentation VTE Present on Admission: No VTE Mechan Device Prophylaxis: SCD's
[2024-01-11] MEDS: Oxytocin 15 Units/NS 250ml 15 UNITS/250 ML IV.SOLN 83 UNITS IV (09:10)
[2024-01-11 09:38] LABS: Bedside Glucose 96 mg/dL (74-106)
[2024-01-11] MEDS: Ketorolac 30 MG/ML Syringe IV (09:53)
[2024-01-11] MEDS: Insulin Glargine-YFGN 100 UNIT/ML Pen 13 UNIT SC (11:04)
[2024-01-11] MEDS: amLODIPine 2.5 MG Tablet PO (11:06)
[2024-01-11 11:12] LABS: Bedside Glucose 96 mg/dL (74-106)
[2024-01-11] MEDS: Lactated Ringers 1,000 ML 100 ML IV (12:13)
[2024-01-11] MEDS: Insulin Lispro 100 UNIT/ML INSULN.PEN 22 UNIT SC (17:24)
[2024-01-11 17:56] LABS: Bedside Glucose 100 mg/dL (74-106)
[2024-01-11] MEDS: 0.9% Saline Lock 10 ML Syringe IV (20:00)
[2024-01-11] MEDS: Enoxaparin 40 MG/0.4 ML Syringe SC (20:10)
[2024-01-11 23:40] LABS: Bedside Glucose 84 mg/dL (74-106)
[2024-01-12] MEDS: Acetaminophen 500 MG Tablet 1000 MG PO ×2 (00:24→06:26)
[2024-01-12 00:28] VITALS: BP 132/82; PULSE 80; RESP 16; TEMP 36.5; O2SAT 100
[2024-01-12 04:45] VITALS: BP 132/76; PULSE 88; RESP 18; TEMP 37.1; O2SAT 99
[2024-01-12 05:06] LABS: Hematocrit 35.4 % (37-47); Hemoglobin 11.5 g/dL (12.0-15.0); Mean Corp Hgb Conc 32.5 g/dL (32-36); Mean Corpuscular Hgb 28.1 pg (27.0-32.0); Mean Corpuscular Volume 86.6 fL (81-99); Mean Platelet Vol. 12.2 fl (6.2-12.0); Platelet Count 229 K/mm3 (150-450); RBC Distribution Width CV 13.4 % (11.6-14.6); RBC Distribution Width SD 42.3 fl (35.1-43.9); Red Blood Count 4.09 M/mm3 (4.2-5.4); White Blood Count 11.5 K/mm3 (4.4-11.0)
--- NOTE | 2024-01-12 06:30 | PCM.PN.OB ---
Subjective Subjective Doing well. Pain controlled. Ambulating and voiding without difficulty. BG has been normal. Lochia mild. Baby is in NICU in [place]. No ARSHAD or vision changes. BP stable. Desires discharge. Requests no prescriptions. Does have a supply of insulin at home. Does carb counting for dosing. Objective Data Objective Data Vital Signs: Vital Signs Temp Pulse Resp BP Pulse Ox O2 Del Method 98.8 F 88 18 132/76 H 99 Room Air 01/12/24 04:45 01/12/24 04:45 01/12/24 04:45 01/12/24 04:45 01/12/24 04:45 01/12/24 04:45 Oxygen Delivery Method Room Air Weight: 113.9 kg Body Mass Index (BMI) 38.2 Intake & Output: Intake and Output for Last 24 Hours 01/10/24 01/11/24 01/12/24 23:59 23:59 23:59 Intake Total 2710.0 / 2710.0 Output Total 1850 / 1850 1350 / 1350 Balance 860.0 / 860.0 -1350 / -1350 Lab / Micro Data 01/12/24 04:50 Labs: Laboratory Results - last 24 hr 01/11/24 05:45: Syphilis Total Ab Non-reactive, Blood Type A POSITIVE, Antibody Screen NEGATIVE 01/11/24 06:05: POC Glucose 74 01/11/24 09:16: POC Glucose 96 01/11/24 10:54: POC Glucose 96 01/11/24 17:07: POC Glucose 100 01/11/24 22:10: POC Glucose 84 01/12/24 04:50: WBC 11.5 H, RBC 4.09 L, Hgb 11.5 L, Hct 35.4 L, MCV 86.6, MCH 28.1, MCHC 32.5, RDW Std Deviation 42.3, RDW Coeff of Rosa 13.4, Plt Count 229, MPV 12.2 H ROS Constitutional Constitutional: Denies fatigue, fever(s) or malaise Eyes Eyes: Denies change in vision ENT HEENT: Denies dizziness or headache(s) Genitourinary Genitourinary: Denies burning urination or genital lesions Neurologic Neurologic: Denies confusion, dizziness, headache(s), numbness or weakness Physical Exam Const alert General Appearance: cooperative GI GI Narrative: soft, moderate distention, fundus firm, appropriately tender. 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
--- NOTE | 2024-01-12 06:39 | DS.PCM_ITS ---
Providers Date of Admission: 01/11/24 Date of Discharge: 01/12/24 Primary Care Physician: Dr. Noah Purcell MD Reason For Visit: REPEAT C SECTION Diagnosis Discharge Diagnosis (1) Chronic hypertension: Status: Chronic Code(s): I10 - Essential (primary) hypertension Plan: Stable BP (2) Type 2 diabetes mellitus: Status: Acute Code(s): E11.9 - Type 2 diabetes mellitus without complications Qualifiers: Diabetes mellitus termination clerk insulin use: unspecified termination clerk insulin use status Diabetes mellitus complication status: without complication Q ualified Code(s): E11.9 - Type 2 diabetes mellitus without complications Plan: BG normal during stay (3) Request for sterilization: Status: Acute Code(s): Z30.2 - Encounter for sterilization (4) S/P : Status: Acute Code(s): Z98.891 - History of uterine scar from previous surgery (5) Obesity affecting : Status: Acute Code(s): O99.210 - Obesity complicating , unspecified trimester Qualifiers: Trimester: third trimester Obesity type affecting : u nspecified obesity Qualified Code(s): O99.213 - Obesity complicating , third trimester Plan Discharge home follow up in 1-2 weeks Medications at Discharge Home Medications ferrous sulfate 325 mg (65 mg iron) tablet 325 mg PO DAILY anemia 01/20/18 Humalog KwikPen Insulin 100 unit/mL subcutaneous (insulin lispro) See Rx Instructions subcut TID diabetes #15 mL 07/29/18 famotidine 20 mg tablet (Pepcid) 20 mg PO BID heartburn 02/22/21 insulin glargine 100 unit/mL (3 mL) subcutaneous pen (Lantus Solostar U-100 Insulin) 26 unit subcut BID diabetes 02/22/21 amlodipine .ROUTE htn 01/11/24 Hospital Course Operations section Procedures - (sterilization) Summary of Care Provided Minutes Spent on Discharge: 21 Hospital Course: Scheduled repeat at 37 weeks for poorly controlled DM and CHTN. Uncomplicated procedure. Baby required respiratory support and was transferred to [facility] in [place]. course was uncomplicated. BP within normal range and BG controlled. Physical Exam Const alert General Appearance: cooperative GI GI Narrative: soft, moderate distention, fundus firm, appropriately tender. Abdominal bandage clean dry and intact Weight / BMI Weight Weight: 113.9 kg Body Mass Index (BMI) 38.2 ABG / Lab / Microbiology Data 01/12/24 04:50 Laboratory: Laboratory Results - last 24 hr 01/11/24 05:45: Syphilis Total Ab Non-reactive, Blood Type A POSITIVE, Antibody Screen NEGATIVE 01/11/24 09:16: POC Glucose 96 01/11/24 10:54: POC Glucose 96 01/11/24 17:07: POC Glucose 100 01/11/24 22:10: POC Glucose 84 01/12/24 04:50: WBC 11.5 H, RBC 4.09 L, Hgb 11.5 L, Hct 35.4 L, MCV 86.6, MCH 28.1, MCHC 32.5, RDW Std Deviation 42.3, RDW Coeff of Rosa 13.4, Plt Count 229, M PV 12.2 H D/C Instructions Discharge Diet: No restrictions May resume sexual activity in: 4-6 weeks Lifting Restrictions: 20 pounds Additional Activity Instructions: Nothing in the vagina for 4-6 weeks. You may return to work/school in 6 weeks. Call your doctor if your incision/area has: Continuous Slow Oozing, Sudden Increased Bleeding, Increased Pain/ Swelling, Increased Redness and Foul Smelling Discharge Call your doctor if you observe: Fever of 101 or Higher and Using more than 1 pad per hour (for 2 hours) Suture Line Care: Avoid Pulling/Pushing and Avoid Pinching/Bending Cleanse incision/area with: Keep Dressing Clean & Dry Please Follow Up With: Barbra Marshall MD When: Call to make an appointment for an incision check in 1-2 [phone]. You will need a post check in 6 weeks. Meaningful Use Info Meaningful Use Meaningful Use Diagnoses (Choose all that apply): None applicable Ischemic Stroke Statin Dosing Therapy Reference: STATIN DOSE THERAPY REFERENCE: * Patients > 75 years receive moderate or high dose statin therapy. * Patients 75 years or YOUNGER should receive HIGH intensity statin dose unless contraindicated. You will be required to document reason for non-treatment if statin daily dose does not meet guidelines. HIGH DOSE STATIN THERAPY DAILY Atorvastatin > than or = to 40 mg Rosuvastatin > than or = to 20 mg Amlodipine + Atorvastatin > than or = to 2.5/40 mg Ezetimibe + Simvastatin 10/80 mg Simvastatin 80mg Discharge Plan Admission Admit Date/Time: 01/11/24 05:21 Primary Reason for Your Visit: Scheduled Attending Provider: Cynthia Segura Primary Care Provider: Noah Purcell Discharge Orders/Prescriptions Prescriptions: Continued ferrous sulfate 325 MG tablet 325 mg PO DAILY famotidine [Pepcid] 20 mg Tablet 20 mg PO BID insulin glargine [Lantus Solostar U-100 Insulin] 100 unit/mL (3 mL) insulin pen 26 unit SC BID amlodipine [Norvasc] .ROUTE insulin lispro [Humalog KwikPen Insulin] 100 unit/mL insulin pen See Rx Instructions SC TID MDD 50 units Qty: 15 11RF Dose Instruction: per sliding scale 1 units per 40 BG points over 150 SC TID; per sliding scale SC TID 1 units per 40 BG points over 150 Rx Instructions: 44 units TID before meals Discontinued aspirin [Aspir-81] 81 mg Tablet,Delayed Release (Dr/Ec) 81 mg PO DAILY Referrals / Follow Up: Noah Purcell MD [Primary Care Provider] - Disposition Disposition (needs filled in before D/C Order can be placed): Home, Self Care
--- NOTE | 2024-01-12 07:30 | NURSING ---
Bedside report given to Choco Rios RN who is assuming care of pt at this time
[2024-01-12 08:11] VITALS: BP 147/86; PULSE 87; RESP 17; TEMP 36.2; O2SAT 100
[2024-01-12 08:38] LABS: Bedside Glucose 100 mg/dL (74-106)
[2024-01-12] MEDS: Insulin Lispro 100 UNIT/ML INSULN.PEN 22 UNIT SC (08:46)
[2024-01-12 11:14] LABS: Pathology Specimen OB SEE PATHOLOGY REPORT
[2024-01-12] MEDS: Insulin Glargine-YFGN 100 UNIT/ML Pen 13 UNIT SC (11:38)
[2024-01-12] MEDS: amLODIPine 2.5 MG Tablet PO (11:40)
== END 2024-01-12 11:50 | disposition home or self-care (01) | DRG 783 ==
PROVIDERS: Admitting Provider Obstetrics & Gynecology; PCP Family Medicine; Visit Provider Obstetrics & Gynecology
PROC: 0UT70ZZ Resection of Bilateral Fallopian Tubes, Open Approach (ICD-10-PCS; CPT 59514; principal; 2024-01-11 07:00)
DX: O10.02 Pre-existing essential hypertension complicating childbirth (principal); O24.12 Pre-existing type 2 diabetes mellitus, in childbirth; K51.90 Ulcerative colitis, unspecified, without complications; Z79.4 Long term (current) use of insulin; O99.214 Obesity complicating childbirth; O34.211 Maternal care for low transverse scar from previous cesarean delivery; Z87.891 Personal history of nicotine dependence; Z3A.37 37 weeks gestation of pregnancy; Z37.0 Single live birth; Z79.82 Long term (current) use of aspirin; O99.62 Diseases of the digestive system complicating childbirth; Z30.2 Encounter for sterilization; O69.81X0 Labor and delivery complicated by cord around neck, without compression, not applicable or unspecified; O99.02 Anemia complicating childbirth
CPT/HCPCS: 59025; 59050; 82962; 85025; 85027; 86780; 86850; 86900; 86901; 88302; 99221; J7120; A4216; G0378; J2405

== ENCOUNTER 2024-05-14 18:23 | Emergency (ER) | payer BC, SELFPAY ==
[2024-05-14 18:24] VITALS: BP 161/101; PULSE 114; RESP 18; TEMP 36; O2SAT 99; BMI 43.5
--- NOTE | 2024-05-14 18:45 | RAD_ITS ---
INDICATION: fall, pain EXAMINATION/TECHNIQUE: X-RAY - LEFT XR Forearm 2 Views 2 VIEWS COMPARISON: None. FINDINGS: SOFT TISSUES: No soft tissue swelling or gas. No radiopaque foreign body. BONES/JOINTS: No acute fracture. Joint spaces anatomically aligned. RAD/Forearm 2 Views IMPRESSION: No acute bony injury. Electronically Signed: Juan Smith MD at 19:24 EST ,
--- NOTE | 2024-05-14 19:33 | EX.ED.UPPERE ---
HPI History of Present Illness Chief Complaint: Upper Extremity Injury Narrative Narrative: Patient is a 21-year-old female with past medical history of type 2 diabetes, anemia, hypertension who presents to the emergency department chief complaint of left forearm pain. Patient states that about 2 days ago she slid down 2 steps and landed on her left forearm. She noted that she had bruising immediately after the injury and she states that she has had worsening pain. States that she has not taken anything for pain prior to coming here for further evaluation management. Patient denies any other pain anywhere else. [facility] Medical History Hypertension complicating in third trimester Stomach ulcer HTN (hypertension) Type 2 diabetes mellitus Anemia Ulcerative colitis Home Medications ?Medication ?Instructions ?Recorded ?Last Taken ?Type Humalog KwikPen Insulin 100 See Rx Instructions subcut TID 07/29/18 01/10/24 Rx unit/mL subcutaneous (insulin diabetes #15 mL lispro) insulin glargine 100 unit/mL (3 26 unit subcut BID diabetes 02/22/21 01/10/24 History mL) subcutaneous pen (Lantus Solostar U-100 Insulin) Allergy/AdvReac Type Severity Reaction Status Date / Time amoxicillin Allergy Rash Verified 05/14/24 18:24 Sulfa (Sulfonamide Allergy Nausea/Vom/ Verified 05/14/24 18:24 Antibiotics) Diarrhea Family History Unknown Diabetes Surgical History Previous section Social History household members: significant other, family and children housing: house number of children: 1 current occupational status: employed current occupation: [employer] employee current occupational exposures/hazards: No pets and animals: No Smoking Status: Former smoker alcohol intake: current substance use type: does not use ROS ROS ED ROS Narrative Constitutional: Denies any headaches, fevers, chills Abdomen: Denies abdominal pain nausea vomit diarrhea : Denies any urinary symptoms Neurological: Denies any numbness, weakness, tingling Musculoskeletal: Complains of left forearm pain as noted above Skin: Complains of bruising to the left forearm as noted above EXAM Physical Exam Narrative Exam Narrative: General: Patient lying in bed rest comfortably did not appear to be in acute distress Head: Atraumatic, normocephalic Eyes: PERRL bilaterally, EOMI bilateral, no conjunctival injection noted Neck: Soft, supple, trachea midline Cardiovascular: Regular rate and rhythm no murmurs gallops rubs are noted Respiratory: Clear to auscultation bilaterally no rales rhonchi or wheezes noted Abdomen: Soft, nondistended, nontender to palpation, bowel sounds present x 4 Musculoskeletal: Patient has tenderness palpation over the mid left forearm. No tenderness palpation of the left elbow or left wrist. All other bony prominences palpated and joints taken through full range of motion no pain elicited Extremities: +5/5 strength noted in the bilateral upper and lower extremities, radial pulses +2/4 in the bilateral upper extremities, compartment soft and compressible. Patient was able to give me the okay sign, thumbs up sign and oppose her thumb to her pinky bilaterally for any difficulty as well as abduct adduct her fingers bilaterally Neurological: Patient is following commands knew that she was at [facility] there is 2023. Sensation grossly intact in the median, ulnar, radial nerve, axillary nerve distributions bilaterally Skin: Warm, dry, patient does have some ecchymosis noted to the left forearm region Const Vital Signs: 05/14/24 18:24 Temperature 96.8 F L Temperature Source Temporal Pulse Rate 114 H Respiratory Rate 18 Blood Pressure 161/101 H Blood Pressure Mean 121 Pulse Ox 99 Oxygen Delivery Method Room Air MDM MDM MDM Narrative Medical decision making narrative: Patient is a 29-year-old female who presented to the emergency department chief complaint of left forearm pain. Patient will have a workup performed here on the differential diagnose includes but limited to musculoskeletal contusion, forearm fracture. Once workup is obtained and reviewed she will be reevaluated. Patient's x-ray was reviewed by myself and by radiology which showed no acute fracture or dislocation. Did discuss results with the patient she was encouraged to continue to ice, elevate and take Tylenol [id number] for pain control. She is advised to follow-up with primary care physician and return with worsening symptoms or other concerns. She is agreeable this plan all question concerns answered she was discharged home in stable condition. Radiography Diagnostic Testing: Clinical Impression(s) from Imaging Studies Forearm X-Ray 05/14/24 18:45 IMPRESSION: No acute bony injury. Electronically Signed: Juan Smith MD at 19:24 EST , Discharge Plan Triage Chief Complaint: Upper Extremity Injury ED Provider: Deep Coleman Dx/Rx/DC Orders Clinical Impression: Arm pain, left Prescriptions: No Action insulin glargine [Lantus Solostar U-100 Insulin] 100 unit/mL (3 mL) insulin pen 26 unit SC BID insulin lispro [Humalog KwikPen Insulin] 100 unit/mL insulin pen See Rx Instructions SC TID MDD 50 units Qty: 15 11RF Dose Instruction: per sliding scale 1 units per 40 BG points over 150 SC TID; per sliding scale SC TID 1 units per 40 BG points over 150 Rx Instructions: 44 units TID before meals Primary Care Provider: Care Physician,No Primary Referrals: Care Physician,No Primary [Primary Care Provider] - Deborah Ramirez [facility], DO [[facility]] - Activity Restrictions/Additional Instructions: Follow-up with your primary care physician outpatient setting. Ice, elevate, use Tylenol for pain control. Return with worsening symptoms or other concerns Print Language: Thai Disposition Disposition: Home, Self Care
[2024-05-14 19:54] VITALS: BP 134/89; PULSE 70; RESP 18; TEMP 36.6; O2SAT 99
== END 2024-05-14 19:55 | disposition home or self-care (01) ==
PROVIDERS: Emergency Provider Emergency Medicine; Visit Provider Emergency Medicine
DX: M79.632 Pain in left forearm (principal); E11.9 Type 2 diabetes mellitus without complications; Z87.891 Personal history of nicotine dependence
CPT/HCPCS: 73090; 99282

== ENCOUNTER 2025-05-06 19:59 | Emergency (ER) | payer OTHER, SELFPAY ==
[2025-05-06 20:00] VITALS: BP 141/100; PULSE 104; RESP 18; TEMP 36.1; O2SAT 100; BMI 33.2
--- NOTE | 2025-05-06 20:16 | ED.RN ---
Beef Specialist from [facility] brought patient to ED explaining accident happened yesterday when she was getting out of the car. Per supervisor dehydrogenation she showed us pictures of her bruises on the chest and left arm and is now complaining of pain. Beef Specialist states she needs to be drug screen. she is filing workers comp. RN states she understands and will get the paperwork ready started. RN asked Dr. Tracey if we could start imaging while she is in the waiting room. Dr. Tracey states we can do a chest x ray and 2 view thoracic. Patient notified orders would put in to take pictures of patients chest.
--- NOTE | 2025-05-06 20:24 | RAD_ITS ---
PROCEDURE: RAD/Thoracic Spine 3 Views
--- NOTE | 2025-05-06 20:24 | RAD_ITS ---
PROCEDURE: RAD/Chest 1 View
[2025-05-06 20:34] VITALS: BP 142/87; PULSE 99; RESP 15; O2SAT 100
--- NOTE | 2025-05-06 21:34 | EX.ED.DYSGE1 ---
HPI History of Present Illness Chief Complaint: Chest Other Informant: patient Narrative Narrative: Patient is a 30-year-old female with history of insulin-dependent type 2 diabetes. She states that yesterday she tripped over a curb and fell landing on her left chest. She denies striking her head or any loss of consciousness. She denies any history of bleeding disorder or blood thinner use. She reports that she has had pain in the left anterior chest and upper back region that is worse with motion. She states she is unsure if she just bruised herself or cause some type of internal injury such as rib fracture. With this she presents for evaluation. [facility] Medical History Hypertension complicating in third trimester Stomach ulcer HTN (hypertension) Type 2 diabetes mellitus Anemia Ulcerative colitis Home Medications ?Medication ?Instructions ?Recorded ?Last Taken ?Type Humalog KwikPen Insulin 100 See Rx Instructions subcut TID 07/29/18 01/10/24 Rx unit/mL subcutaneous (insulin diabetes #15 mL lispro) insulin glargine 100 unit/mL (3 26 unit subcut BID diabetes 02/22/21 01/10/24 History mL) subcutaneous pen (Lantus Solostar U-100 Insulin) Allergy/AdvReac Type Severity Reaction Status Date / Time amoxicillin Allergy Rash Verified 05/06/25 20:00 Sulfa (Sulfonamide Allergy Nausea/Vom/ Verified 05/06/25 20:00 Antibiotics) Diarrhea Family History Unknown Diabetes Surgical History Previous section Social History household members: significant other, family and children housing: house number of children: 1 current occupational status: employed current occupation: [employer] employee current occupational exposures/hazards: No pets and animals: No Smoking Status: Former smoker alcohol intake: current substance use type: does not use ROS ROS ED Constitutional Constitutional ED: Denies chills or fever(s) Eyes Eyes: Denies blurry vision or change in vision ENT ENT ED: Denies sore throat Cardiovascular Cardiovascular: Reports other Details: Negative syncope ; Denies chest pain, palpitations or racing heartbeat Respiratory/Chest Respiratory/Chest: Denies cough or dyspnea Gastrointestinal Gastrointestinal: Denies abdominal pain, diarrhea, nausea or vomiting Genitourinary Genitourinary ED: Denies dysuria or hematuria Musculoskeletal Musculoskeletal: Reports back pain and other Details: Positive chest wall pain Integumentary Denies Abrasions or rash Neurologic Neurologic: Denies headache(s) Hematologic/Lymphatic Hematologic/Lymphatic: Denies easy bleeding or easy bruising EXAM Physical Exam Const Vital Signs: 05/06/25 20:00 05/06/25 20:31 05/06/25 20:34 Temperature 96.9 F L Temperature Source Temporal Pulse Rate 104 H 99 Respiratory Rate 18 15 Respiratory Effort Normal Short of Breath Blood Pressure 141/100 H 142/87 H Blood Pressure Mean 113 105 Pulse Ox 100 100 Oxygen Delivery Method Room Air Room Air Positive well nourished and well developed General Appearance ED: well developed HEENT HEENT Narrative: Normocephalic atraumatic No signs of depressed or basilar skull fracture Eyes PERRL and EOMs intact bilaterally Neck supple Neck Narrative: No bony deformity or step-off of the cervical spine No midline tenderness to palpation Chest Wall Chest Narrative: There is reproducible left anterior chest wall pain on palpation rib regions 4-6 without obvious bony deformity or crepitance No overlying abrasions or ecchymosis noted Resp normal respiratory effort and clear to auscultation bilaterally Cardio regular rate and regular rhythm GI normal to inspection, nondistended, normoactive bowel sounds, non-tender, non-distended and no masses GI Narrative: No abrasions or ecchymosis across the abdominal wall Auscultation: normoactive bowel sounds Palpation: soft Back/Spine Back/Spine Narrative: No bony deformity or step-off of the thoracic or lumbar spine No midline tenderness to palpation There is left upper parathoracic tenderness and slight spasm noted along the shoulder blade region that worsens with motion No overlying soft tissue changes to suggest trauma such as ecchymosis or abrasion Extremity Extremity Narrative: Left upper extremity is neurovascularly intact; AIN/PIN are intact and normal. There is mild soft tissue swelling with ecchymosis to the proximal aspect of the left humerus. No obvious bony deformity or joint effusion. Negative sulcus sign. Patient has full active range of motion of the left arm. All compartments are soft and compressible going against compartment syndrome Remainder the exam is normal Neuro oriented x3, CN's II-XII intact bilaterally and no sensory deficits noted Sensorium / Orientation: alert Motor Exam: strength 5/5 throughout Psych mental status grossly normal Skin Skin Narrative: Mild soft tissue swelling and ecchymosis to the left proximal humerus as documented above Otherwise no further abrasions or ecchymosis noted. No secondary findings of infection MDM MDM MDM Narrative Medical decision making narrative: Patient arrived to the ER mildly hypertensive but overall stable vitals. She reported a mechanical fall roughly 24 hours ago and therefore I felt no need for cardiac or syncope workup. She did not strike her head nor did she take blood thinners or have a history of brain disorders have low concern for traumatic subarachnoid or subdural hemorrhage and there is no need for head CT. With her main complaint of pain in the left anterior chest wall there is concern for rib fracture versus pneumothorax. With pain in the upper back there is concern for a compression fracture. X-rays of these areas were obtained and revealed no signs of acute trauma. Therefore there is no need for further intervention and she is otherwise safe for discharge. History & Record Review Discussion w/independent historian: Patient Radiography Diagnostic Testing: Clinical Impression(s) from Imaging Studies Chest X-Ray 05/06/25 20:24 IMPRESSION: No acute findings. Reading Location: [facility] Thoracic Spine X-Ray 05/06/25 20:24 IMPRESSION: No evidence of acute fracture or subluxation. Mild multilevel spondylotic changes with exaggerated thoracic kyphosis. Reading Location: [facility] Chest x-ray as interpreted by the emergency medicine physician reveals no acute infiltrate pneumothorax or rib fracture Thoracic spine x-ray as interpreted by the emergency medicine physician reveals no acute compression fracture or spondylolisthesis. Discharge Plan Triage Chief Complaint: Chest Other ED Provider: Maxwell Tracey Dx/Rx/DC Orders Clinical Impression: Contusion of anterior chest wall, Accidental fall, Diabetes mellitus type 2, insulin dependent Instructions: ED Chest Wall Contusion Prescriptions: No Action insulin glargine [Lantus Solostar U-100 Insulin] 100 unit/mL (3 mL) insulin pen 26 unit SC BID insulin lispro [Humalog KwikPen Insulin] 100 unit/mL insulin pen See Rx Instructions SC TID MDD 50 units Qty: 15 11RF Dose Instruction: per sliding scale 1 units per 40 BG points over 150 SC TID; per sliding scale SC TID 1 units per 40 BG points over 150 Rx Instructions: 44 units TID before meals Primary Care Provider: Care Physician,No Primary Referrals: Care Physician,No Primary [Primary Care Provider, Medical] Activity Restrictions/Additional Instructions: Your x-ray showed no sign of rib fracture hole in your lung/pneumothorax or injury to the spine indicating the pain is secondary to deep bone bruise known as a contusion. This will heal spontaneously over the next 1 to 2 weeks. Take Tylenol and or Motrin for pain control and use topical pain control medication such as lidocaine patches or IcyHot. Return to the ER should you have any further concerns Print Language: [place] Irish Disposition Disposition: Home, Self Care Discharge Date/Time: 05/06/25 21:48
== END 2025-05-06 21:48 | disposition home or self-care (01) ==
PROVIDERS: Emergency Provider Emergency Medicine; Visit Provider Emergency Medicine
DX: S20.212A Contusion of left front wall of thorax, initial encounter (principal); W01.0XXA Fall on same level from slipping, tripping and stumbling without subsequent striking against object, initial encounter; Y99.0 Civilian activity done for income or pay; Z87.891 Personal history of nicotine dependence
CPT/HCPCS: 71045; 72072; 99282